=== PATIENT | male | born 1960 | race Caucasian/White ===

== ENCOUNTER 2016-03-02 17:57 | Emergency (ER) | payer MEDICAID ==
[~2016-03-02] VITALS: Ht 182.9 cm; Wt 76.0 kg
[2016-03-02 18:06] VITALS: BP 178/78; PULSE 94; RESP 14; TEMP 98.5; O2SAT 97
[2016-03-02] MEDS ORDERED: ASPI325T PO (20:16)
[2016-03-02] MEDS ORDERED: [UNRECOGNIZED DRUG - REMARK] (20:16)
[2016-03-02] MEDS ORDERED: SODIUM CHLORIDE 0.9% FLUSH 5 ML FLUSH IVF PRN (20:30)
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
[2016-03-02 21:12] LABS: AUTOMATED NEUTROPHIL # 3.1 TH/MM3 (1.8-7.7); BASOPHIL # 0.1 TH/MM3 (0-0.2); BASOPHIL % 0.8 % (0.0-2.0); EOSINOPHIL # 0.7 TH/MM3 (0-0.4); EOSINOPHIL % 9.6 % (0.0-4.0); HEMATOCRIT 35.5 % (39.0-51.0); HEMO FLAGS DIFF FINAL; LYMPH % 36.4 % (9.0-44.0); LYMPHOCYTE # 2.7 TH/MM3 (1.0-4.8); MEAN CELL VOLUME 89.4 FL (80.0-100.0); MEAN CORPUSCULAR HGB CONC 33.5 % (32.0-36.0); NEUT % 42.2 % (16.0-70.0); PLATELET COUNT 266 TH/MM3 (150-450); RED BLOOD COUNT 3.97 MIL/MM3 (4.50-5.90); RED CELL DISTRIBUTION WIDTH 18.4 % (11.6-17.2); WHITE BLOOD COUNT 7.5 TH/MM3 (4.0-11.0)
[2016-03-02 21:14] VITALS: BP 109/55; O2SAT 98
[2016-03-02 22:02] LABS: BICARBONATE 25.3 MEQ/L (21.0-32.0); POTASSIUM 3.8 MEQ/L (3.5-5.1)
--- NOTE | 2016-03-02 22:46 | PD ---
Physical Exam Narrative General: The patient is a well-developed well-nourished male in no acute distress Head and Neck exam: Head is normocephalic, evidence of trauma to the posterior aspect of the head, with superficial abrasion noted. No step-off or crepitus. Eyes: EOMI, pupils are equal round and reactive to light. Neck: No spinous process tenderness to palpation. No step-off or crepitus, no erythema or ecchymosis. No nuchal rigidity. Cardiovascular: Regular rate and rhythm without murmurs, gallops, or rubs. Lungs: Clear to auscultation bilaterally. No wheezes, rhonchi, or rales. Abdomen: Soft, without tenderness to palpation in all 4 quadrants of the abdomen. No guarding, rebound, or rigidity. Normal bowel sounds are audible. Extremities: No clubbing, cyanosis, or edema. 2+ pulses in all 4 extremities. Neurologic examination: The patient is oriented to person, place, time, and situation. The patient has strength that is 5 over 5 in bilateral upper extremities. Patient has diminished strength in his lower extremities related to his prior history. The patient appears to be at his baseline of mentation and has his baseline neurologic examination, compared to prior exams. Data Data Last Documented VS Vital Signs Date Time Temp Pulse Resp B/P Pulse Ox O2 Delivery O2 Flow Rate FiO2 03/02/16 21:14 109/55 03/02/16 21:14 98 Room Air 03/02/16 18:06 98.5 94 14 Orders Complete Blood Count With Diff (03/02/16 20:26) Basic Metabolic Panel (Bmp) (03/02/16 20:26) Ecg Monitoring (03/02/16 20:26) Iv Access Insert/Monitor (03/02/16 20:26) Oximetry (03/02/16 20:26) Sodium Chloride 0.9% Flush (Ns Flush) (03/02/16 20:30) Ct Brain W/O Iv Contrast(Rout) (03/02/16 ) Ct Cerv Spine W/O Contrast (03/02/16 ) Labs Laboratory Tests Test 03/02/16 20:45 White Blood Count 7.5 TH/MM3 Red Blood Count 3.97 MIL/MM3 Hemoglobin 11.9 GM/DL Hematocrit 35.5 % Mean Corpuscular Volume 89.4 FL Mean Corpuscular Hemoglobin 30.0 PG Mean Corpuscular Hemoglobin 33.5 % Concent Red Cell Distribution Width 18.4 % Platelet Count 266 TH/MM3 Mean Platelet Volume 7.6 FL Neutrophils (%) (Auto) 42.2 % Lymphocytes (%) (Auto) 36.4 % Monocytes (%) (Auto) 11.0 % Eosinophils (%) (Auto) 9.6 % Basophils (%) (Auto) 0.8 % Neutrophils # (Auto) 3.1 TH/MM3 Lymphocytes # (Auto) 2.7 TH/MM3 Monocytes # (Auto) 0.8 TH/MM3 Eosinophils # (Auto) 0.7 TH/MM3 Basophils # (Auto) 0.1 TH/MM3 CBC Comment DIFF FINAL Differential Comment Sodium Level 136 MEQ/L Potassium Level 3.8 MEQ/L Chloride Level 102 MEQ/L Carbon Dioxide Level 25.3 MEQ/L Anion Gap 9 MEQ/L Blood Urea Nitrogen 9 MG/DL Creatinine 0.79 MG/DL Estimat Glomerular Filtration 101 ML/MIN Rate Random Glucose 141 MG/DL Calcium Level 7.5 MG/DL [facility] Medical Record Reviewed: Yes Supervised Visit with STANTON: Yes Interpretation(s) Last Impressions Head CT 03/02/16 0000 Signed Impressions: Service Date/Time: Wednesday, March 02, 2016 23:39 - CONCLUSION: Stable brain appearance. No acute findings. Caleb Paige MD Cervical Spine CT 03/02/16 0000 Signed Impressions: Service Date/Time: Wednesday, March 02, 2016 23:39 - CONCLUSION: No acute bony injury. Severe degenerative changes and disc disease similar to prior. Caleb Paige MD Narrative Course I, Dr. Early, have reviewed the advance practice practitioner's documentation and am in agreement, met with the patient face to face, made the diagnosis, and the medical decision making was done by me. The patient was initially seen by Daniel, the physician clinical assistant professor. Please see his complete history and physical. *My assessment and Findings: The patient is a 55-year-old male who presents to [facility] emergency Department with a history of reportedly having a seizure earlier today causing him to fall out of his wheelchair. The patient struck the side of his head. The patient arrives this facility in no acute distress, intoxicated with alcohol. The patient reports that he does drink alcohol on a daily basis. He denies being compliant with any type of seizure medication regimen. The patient's examination was remarkable for an abrasion on his head. Laboratory studies and a CT scan of the head and neck were ordered. The patient's laboratory studies revealed a white count of 7.5, hemoglobin 11.9, platelets 266 with 11 monocytes, CMP was remarkable for a glucose of 141, calcium 7.5. Radiologic studies were remarkable for a CT scan of the brain that shows no acute abnormality. CT scan of the C-spine shows degenerative changes, no other acute abnormality. The patient was observed in the emergency department for improvement in his mentation and ability to get around in his wheelchair without assistance. Once the patient is more awake and alert the patient will be discharged home. The patient is resting comfortably and feels better, is alert and in no distress. The patients results and examination findings were discussed with the patient. The repeat examination is unremarkable and benign. The history, exam, diagnostic testing, and current condition do not suggest any significant pathology to warrant further testing, continued ED treatment, admission, or surgical evaluation at this point. The vital signs have been stable. The patient does not have uncontrollable pain, intractable vomiting, or other significant symptoms. The patient's condition is stable and appropriate for discharge. The patient will pursue further outpatient evaluation with a primary care physician or other designated or consulting physician as indicated in the discharge instructions. The patient expressed understanding and was agreeable with this plan. Diagnosis Primary Impression: Alcohol intoxication Qualified Code: F10.120 - Alcohol intoxication, uncomplicated Additional Impression: Closed head injury Qualified Code: S09.90XA - Closed head injury, initial encounter Referrals: Primary Care Physician [facility] Patient Instructions: General Instructions, Head Injury (ED), Abuse of Alcohol (ED) Additional Instruction: Follow-up with your primary care physician and/or Siobhan Leal for evaluation and possible detox. Cut back on drinking. Return to the emergency department if symptoms get worse. Disposition: 01 DISCHARGE HOME Condition: Stable Yeni Early MD Mar 02, 2016 22:46 evaluation and possible detox. Cut back on drinking. Return to the emergency department if symptoms get worse. Disposition: 01 DISCHARGE HOME Condition: Yeni Bonilla MD Mar 02, 2016 22:46
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
[2016-03-03 05:52] VITALS: TEMP 98.9
[2016-06-17] MEDS ORDERED: LEVE500 PO (16:59)
== END 2016-03-03 06:53 | disposition home or self-care (01) ==
LOC: NEPE 17:57 → NEPA 03-03 06:53
DX: S09.90XA Unspecified injury of head, initial encounter (principal); R56.9 Unspecified convulsions; F10.120 Alcohol abuse with intoxication, uncomplicated; S00.01XA Abrasion of scalp, initial encounter; E11.9 Type 2 diabetes mellitus without complications; I10 Essential (primary) hypertension; G20 Parkinson's disease; Z86.73 Personal history of transient ischemic attack (TIA), and cerebral infarction without residual deficits; Z72.0 Tobacco use; W05.0XXA Fall from non-moving wheelchair, initial encounter
CPT/HCPCS: 70450; 72125; 80048; 85025

== ENCOUNTER 2016-03-10 14:43 | Emergency (ER) | payer MEDICAID ==
[~2016-03-10] VITALS: Ht 180.3 cm; Wt 73.0 kg
[~2016-03-10 14:43] MED LIST: ASPI325T PO; [UNRECOGNIZED DRUG - REMARK]
[2016-03-10] MEDS ORDERED: SODIUM CHLOR 0.9% 1000 ML INJ 1,000 ML IV SCH (14:56)
[2016-03-10 14:58] VITALS: BP 104/68; PULSE 88; RESP 18; TEMP 97.9; O2SAT 96
[2016-03-10 15:00] VITALS: BP 104/68; PULSE 88; RESP 16; TEMP 97.9; O2SAT 96
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
[2016-03-10] MEDS ORDERED: LORazepam 2 MG/ML VIAL IV PUSH ONE (15:30)
--- NOTE | 2016-03-10 15:36 | RADRPT ---
EXAM DATE/TIME: 03/10/2016 15:16 [facility] COMPARISON: CT BRAIN W/O CONTRAST, March 02, 2016, 23:39. INDICATIONS : Generalized weakness. RADIATION DOSE: 56.35 CTDIvol (mGy) MEDICAL HISTORY : Cerebrovascular disease. Seizures. Hypertension. SURGICAL HISTORY : None. ENCOUNTER: Initial ACUITY: 1 day PAIN SCALE: 0/10 LOCATION: cranial TECHNIQUE: Multiple contiguous axial images were obtained of the head. Using automated exposure control and adj ustment of the mA and/or kV according to patient size, radiation dose was kept as low as reasonably a chievable to obtain optimal diagnostic quality images. FINDINGS: Area of remote stroke right middle cerebral artery involving the temporal parietal region is apprecia robbin with encephalomalacia. There is no acute hemorrhage, mass, or extracerebral defect and no acute i ntracranial hemorrhage. Midline structures and major anatomic landmarks remain correctly situated. CONCLUSION: Stable CT brain scan with no acute findings. 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 This report was verified electronically.
--- NOTE | 2016-03-10 15:56 | RADRPT ---
EXAM DATE/TIME: 03/10/2016 15:19 [facility] COMPARISON: CHEST SINGLE AP, November 23, 2015, 22:09. INDICATIONS : Short of breath. MEDICAL HISTORY : Seizures. Parkinsons. Hypertension.CVA SURGICAL HISTORY : None. ENCOUNTER: Initial ACUITY: 1 day PAIN SCORE: 3/10 LOCATION: Bilateral chest FINDINGS: A single view of the chest demonstrates the lungs to be symmetrically aerated without evidence of mas s, infiltrate or effusion. The cardiomediastinal contours are unremarkable. Osseous structures are intact with hypertrophic spurring of the right mid and lower thoracic spine. CONCLUSION: No acute disease. No significant change has occurred. Edilson Orantes MD on March 10, 2016 at 15:54 Board Certified Radiologist. This report was verified electronically.
[2016-03-10 16:09] LABS: AUTOMATED NEUTROPHIL # 4.6 TH/MM3 (1.8-7.7); BASOPHIL # 0.1 TH/MM3 (0-0.2); BASOPHIL % 1.2 % (0.0-2.0); EOSINOPHIL # 0.6 TH/MM3 (0-0.4); EOSINOPHIL % 7.1 % (0.0-4.0); HEMATOCRIT 38.5 % (39.0-51.0); HEMO FLAGS DIFF FINAL; LYMPH % 31.6 % (9.0-44.0); LYMPHOCYTE # 2.8 TH/MM3 (1.0-4.8); MEAN CELL VOLUME 90.6 FL (80.0-100.0); MEAN CORPUSCULAR HEMOGLOBIN 30.1 PG (27.0-34.0); MEAN CORPUSCULAR HGB CONC 33.2 % (32.0-36.0); MONO % 7.6 % (0.0-8.0); NEUT % 52.5 % (16.0-70.0); PLATELET COUNT 286 TH/MM3 (150-450); RED BLOOD COUNT 4.25 MIL/MM3 (4.50-5.90); RED CELL DISTRIBUTION WIDTH 18.9 % (11.6-17.2); WHITE BLOOD COUNT 8.8 TH/MM3 (4.0-11.0)
[2016-03-10 16:18] LABS: APTT (PATIENT) 31.5 SEC (24.3-30.1); PROTHROMBIN TIME - PATIENT 10.8 SEC (9.8-11.6)
[2016-03-10 16:30] LABS: ALT (GPT) 24 U/L (12-78); ANION GAP 14 MEQ/L (5-15); AST (GOT) 36 U/L (15-37); BICARBONATE 20.6 MEQ/L (21.0-32.0); BLOOD UREA NITROGEN 10 MG/DL (7-18); CHLORIDE 98 MEQ/L (98-107); GLOMERULAR FILTRATION RATE 79 ML/MIN (>89); MAGNESIUM 2.1 MG/DL (1.5-2.5); POTASSIUM 4.1 MEQ/L (3.5-5.1); SODIUM (NA) 133 MEQ/L (136-145)
[2016-03-10 16:40] LABS: ALKALINE PHOSPHATASE 73 U/L (45-117); TOTAL BILIRUBIN ADULT 0.2 MG/DL (0.2-1.0)
[2016-03-10] MEDS ORDERED: LEVE500 PO (17:09)
[2016-03-10] MEDS ORDERED: levETIRAcetam 1000 MG INJ 100 ML IV ONE (19:00)
--- NOTE | 2016-03-11 16:16 | EKG ---
Date Performed: 03/10/2016 Time Performed: 15:33:16 PTAGE: 55 years EKG: Sinus rhythm Compared to prior tracing no significant change NORMAL ECG PREVIOUS TRACING 11/23/2015 @2256 DOCTOR: Jayro Perdomo Interpretating Date/Time 03/11/2016 16:16:30
[2016-06-17] MEDS ORDERED: LEVE500 PO (16:59)
== END 2016-03-11 05:12 | disposition home or self-care (01) ==
LOC: NEDAMB 14:43
DX: F10.129 Alcohol abuse with intoxication, unspecified (principal); I10 Essential (primary) hypertension; G20 Parkinson's disease; Z72.0 Tobacco use; Z86.73 Personal history of transient ischemic attack (TIA), and cerebral infarction without residual deficits; Z88.0 Allergy status to penicillin
CPT/HCPCS: 70450; 71010; 80053; 80184; 80320; 83605; 83735; 84443; 84484; 85025; 85610; 85730; 93005; 96361; 96374; 99285; J1953; J7030

== ENCOUNTER 2016-04-06 10:00 | Emergency (ER) | payer MEDICAID ==
[~2016-04-06] VITALS: Ht 180.3 cm; Wt 82.0 kg
[~2016-04-06 10:00] MED LIST changes: +LEVE500 PO
[2016-04-06 10:04] VITALS: BP 121/81; PULSE 86; RESP 17; TEMP 98.4; O2SAT 98
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
[2016-04-06] MEDS ORDERED: levETIRAcetam 500 MG TAB PO ONE (10:30)
[2016-04-06] MEDS ORDERED: THIAMINE INJ 100 MG in SODIUM CHLORIDE 0.9% INJ 100 ML IV ONE (10:30)
[2016-04-06 10:42] LABS: AUTOMATED NEUTROPHIL # 3.4 TH/MM3 (1.8-7.7); BASOPHIL # 0.2 TH/MM3 (0-0.2); EOSINOPHIL # 1.4 TH/MM3 (0-0.4); EOSINOPHIL % 17.1 % (0.0-4.0); HEMATOCRIT 40.7 % (39.0-51.0); HEMO FLAGS DIFF FINAL; LYMPH % 28.7 % (9.0-44.0); LYMPHOCYTE # 2.3 TH/MM3 (1.0-4.8); MEAN CORPUSCULAR HEMOGLOBIN 30.4 PG (27.0-34.0); MEAN CORPUSCULAR HGB CONC 33.8 % (32.0-36.0); MONO % 10.8 % (0.0-8.0); NEUT % 41.4 % (16.0-70.0); PLATELET COUNT 302 TH/MM3 (150-450); RED BLOOD COUNT 4.53 MIL/MM3 (4.50-5.90); RED CELL DISTRIBUTION WIDTH 18.6 % (11.6-17.2); WHITE BLOOD COUNT 8.2 TH/MM3 (4.0-11.0)
[2016-04-06 10:49] LABS: BICARBONATE 22.5 MEQ/L (21.0-32.0); MAGNESIUM 2.3 MG/DL (1.5-2.5)
--- NOTE | 2016-04-06 10:57 | RADRPT ---
EXAM DATE/TIME: 04/06/2016 10:40 [facility] COMPARISON: CT BRAIN W/O CONTRAST, March 10, 2016, 15:16. INDICATIONS : Trauma. RADIATION DOSE: 56.35 CTDI vol (mGy) MEDICAL HISTORY : Cardiovascular disease. Parkinsons. Diabetes mellitus type 2.Hypertension. SURGICAL HISTORY : None. ENCOUNTER: Initial ACUITY: 1 day PAIN SCALE: 0/10 LOCATION: cranial TECHNIQUE: Multiple contiguous axial images were obtained of the head. Using automated exposure control and adj ustment of the mA and/or kV according to patient size, radiation dose was kept as low as reasonably a chievable to obtain optimal diagnostic quality images. FINDINGS: CEREBRUM: Old right temporal lobe infarct. The ventricles are normal for age. No evidence of midline shift, ma ss lesion, hemorrhage or acute infarction. No extra-axial fluid collections are seen. POSTERIOR FOSSA: The cerebellum and brainstem are intact. The 4th ventricle is midline. The cerebellopontine angle i s unremarkable. EXTRACRANIAL: The visualized portion of the orbits is intact. SKULL: The calvaria is intact. No evidence of skull fracture. Bilateral maxillary sinus disease. CONCLUSION: Stable CT findings. No acute intracranial abnormality. Javad Davey MD on April 06, 2016 at 10:51 Board Certified Radiologist. This report was verified electronically.
[2016-04-06] MEDS ORDERED: LEVE500 PO (13:57)
[2016-06-17] MEDS ORDERED: LEVE500 PO (16:59)
== END 2016-04-06 21:49 | disposition home or self-care (01) ==
LOC: NEPE 10:00
DX: F10.120 Alcohol abuse with intoxication, uncomplicated (principal); I10 Essential (primary) hypertension; G20 Parkinson's disease; E11.9 Type 2 diabetes mellitus without complications; Z72.0 Tobacco use; Z86.73 Personal history of transient ischemic attack (TIA), and cerebral infarction without residual deficits
CPT/HCPCS: 70450; 80048; 80320; 83735; 85025; 99284; J3411

== ENCOUNTER 2016-04-15 15:54 | Emergency (ER) | payer MEDICAID ==
[~2016-04-15] VITALS: Ht 180.3 cm; Wt 82.0 kg
[2016-04-15 16:50] VITALS: BP 103/63; PULSE 83; RESP 20; TEMP 97.8; O2SAT 97
[2016-06-17] MEDS ORDERED: LEVE500 PO (16:59)
== END 2016-04-15 21:38 | disposition left against medical advice (07) ==
LOC: NEDAMB 15:54
DX: Z53.21 Procedure and treatment not carried out due to patient leaving prior to being seen by health care provider (principal)
CPT/HCPCS: 99281

== ENCOUNTER 2016-05-07 03:22 | Emergency (ER) | payer MEDICAID ==
[~2016-05-07] VITALS: Ht 167.6 cm; Wt 85.0 kg
[2016-05-07 03:31] VITALS: BP 134/85; PULSE 95; RESP 16; TEMP 97.8; O2SAT 97
[2016-05-07] MEDS ORDERED: SODIUM CHLOR 0.9% 1000 ML INJ 1,000 ML IV SCH (05:11)
[2016-05-07] MEDS ORDERED: THIAMINE INJ 100 MG in SODIUM CHLORIDE 0.9% INJ 100 ML IV ONE (05:15)
[2016-05-07] MEDS ORDERED: SODIUM CHLORIDE 0.9% FLUSH 10 ML FLUSH IVF PRN (05:15)
[2016-05-07 05:17] VITALS: O2SAT 99
--- NOTE | 2016-05-07 05:35 | PD ---
HPI Chief Complaint: Alcohol/Drug Intoxication Time Seen by Provider: 05:11 Travel History International Travel<30 days: No Contact w/Intl Traveler<30days: No Traveled to known affect area: No History of Present Illness HPI The patient is a 55-year-old male alcoholic that was picked up by [place] police department for public intoxication. Because he could not walk he was brought here because the usp refused to except him. He has no other problems except he wants a sandwich and something to drink. The patient normally cannot walk and has a wheelchair. The patient is not sure where his wheelchair is. 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) Past Surgical History Other Surgery: Yes (RIGHT SHOULDER) Social History Alcohol Use: Yes (DAILY) Tobacco Use: Yes Substance Use: No Allergies-Medications (Allergen,Severity, Reaction): Coded Allergies: Penicillin (Verified Allergy, Unknown, 05/07/16) *MDRO Multi-Drug Resistant Organism (Verified Adverse Reaction, Unknown, ) 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 His vital signs show a pulse of 95 but otherwise are normal. SKIN: Warm and dry. HEAD: Atraumatic. Normocephalic. EYES: Pupils equal and round. No scleral icterus. No injection or drainage. ENT: No nasal bleeding or discharge. Mucous membranes pink and moist. NECK: Trachea midline. No JVD. CARDIOVASCULAR: Regular rate and rhythm. No murmur appreciated. RESPIRATORY: No accessory muscle use. Clear to auscultation. Breath sounds equal bilaterally. GASTROINTESTINAL: Abdomen soft, non-tender, nondistended. Hepatic and splenic margins not palpable. MUSCULOSKELETAL: No obvious deformities. No clubbing. No cyanosis. No edema. NEUROLOGICAL: Awake and alert. No obvious cranial nerve deficits. Motor grossly within normal limits. Normal speech. PSYCHIATRIC: Appropriate mood and affect; insight and judgment fair because of intoxication. Data Data Last Documented VS Vital Signs Date Time Temp Pulse Resp B/P Pulse Ox O2 Delivery O2 Flow Rate FiO2 05/07/16 05:17 99 Room Air 05/07/16 03:31 97.8 95 16 134/85 Orders Complete Blood Count With Diff (05/07/16 05:11) Comprehensive Metabolic Panel (05/07/16 05:11) Ecg Monitoring (05/07/16 05:11) Iv Access Insert/Monitor (05/07/16 05:11) Oximetry (05/07/16 05:11) Sodium Chloride 0.9% Flush (Ns Flush) (05/07/16 05:15) Sodium Chlor 0.9% 1000 Ml Inj (Ns 1000 M (05/07/16 05:11) Thiamine Inj (Thiamine Inj) (05/07/16 05:15) Alcohol (Ethanol) (05/07/16 05:11) Labs Laboratory Tests Test 05/07/16 05:25 White Blood Count 7.4 TH/MM3 Red Blood Count 3.99 MIL/MM3 Hemoglobin 12.8 GM/DL Hematocrit 37.0 % Mean Corpuscular Volume 92.7 FL Mean Corpuscular Hemoglobin 32.0 PG Mean Corpuscular Hemoglobin 34.6 % Concent Red Cell Distribution Width 18.2 % Platelet Count 220 TH/MM3 Mean Platelet Volume 7.9 FL Neutrophils (%) (Auto) 45.5 % Lymphocytes (%) (Auto) 31.1 % Monocytes (%) (Auto) 14.4 % Eosinophils (%) (Auto) 8.2 % Basophils (%) (Auto) 0.8 % Neutrophils # (Auto) 3.4 TH/MM3 Lymphocytes # (Auto) 2.3 TH/MM3 Monocytes # (Auto) 1.1 TH/MM3 Eosinophils # (Auto) 0.6 TH/MM3 Basophils # (Auto) 0.1 TH/MM3 CBC Comment DIFF FINAL Differential Comment Sodium Level 140 MEQ/L Potassium Level 3.7 MEQ/L Chloride Level 107 MEQ/L Carbon Dioxide Level 23.0 MEQ/L Anion Gap 10 MEQ/L Blood Urea Nitrogen 9 MG/DL Creatinine 0.71 MG/DL Estimat Glomerular Filtration 115 ML/MIN Rate Random Glucose 87 MG/DL Calcium Level 7.6 MG/DL Total Bilirubin 0.2 MG/DL Aspartate Amino Transf 48 U/L (AST/SGOT) Alanine Aminotransferase 36 U/L (ALT/SGPT) Alkaline Phosphatase 70 U/L Total Protein 6.9 GM/DL Albumin 2.9 GM/DL Ethyl Alcohol Level 278 MG/DL [facility] Medical Decision Making Medical Screen Exam Complete: Yes Emergency Medical Condition: Yes Medical Record Reviewed: Yes Interpretation(s) The CBC shows a hemoglobin of 12.8 and hematocrit of 37 but is otherwise normal. The complete metabolic profile shows a calcium of 7.6, AST of 48 and albumin of 2.9 but is otherwise normal. The alcohol level is 278. Differential Diagnosis Alcohol intoxication, other drug intoxicationunlikely, refusal to walk to avoid usp, patient unable to walk normally Narrative Course The patient is unable to walk. He has a wheelchair and it is at prisoner transport. If the police will bring him his wheelchair we will let the patient go. The patient has been cooperative here. Diagnosis Primary Impression: Alcohol intoxication Additional Impression: Wheelchair confinement status Additional Instructions: Please discontinue alcohol. Follow-up with Chance Leal if you wish to get off of alcohol. Med/Other Pt SpecificInfo: No Change to Meds Disposition: 01 DISCHARGE HOME Condition: Stable Freddy Thorne MD May 07, 2016 05:35
[2016-05-07 05:44] LABS: AUTOMATED NEUTROPHIL # 3.4 TH/MM3 (1.8-7.7); BASOPHIL # 0.1 TH/MM3 (0-0.2); BASOPHIL % 0.8 % (0.0-2.0); EOSINOPHIL # 0.6 TH/MM3 (0-0.4); EOSINOPHIL % 8.2 % (0.0-4.0); HEMO FLAGS DIFF FINAL; LYMPH % 31.1 % (9.0-44.0); LYMPHOCYTE # 2.3 TH/MM3 (1.0-4.8); MEAN CELL VOLUME 92.7 FL (80.0-100.0); MEAN CORPUSCULAR HGB CONC 34.6 % (32.0-36.0); MONO % 14.4 % (0.0-8.0); NEUT % 45.5 % (16.0-70.0); PLATELET COUNT 220 TH/MM3 (150-450); RED BLOOD COUNT 3.99 MIL/MM3 (4.50-5.90); RED CELL DISTRIBUTION WIDTH 18.2 % (11.6-17.2); WHITE BLOOD COUNT 7.4 TH/MM3 (4.0-11.0)
[2016-05-07 05:57] LABS: ANION GAP 10 MEQ/L (5-15)
[2016-05-07 06:01] LABS: ALKALINE PHOSPHATASE 70 U/L (45-117); ALT (GPT) 36 U/L (12-78); AST (GOT) 48 U/L (15-37); BLOOD UREA NITROGEN 9 MG/DL (7-18); CHLORIDE 107 MEQ/L (98-107); GLOMERULAR FILTRATION RATE 115 ML/MIN (>89); POTASSIUM 3.7 MEQ/L (3.5-5.1); SODIUM (NA) 140 MEQ/L (136-145); TOTAL BILIRUBIN ADULT 0.2 MG/DL (0.2-1.0)
[2016-05-07] MEDS ORDERED: LEVE500 PO (07:27)
[2016-06-17] MEDS ORDERED: LEVE500 PO (16:59)
== END 2016-05-07 08:18 | disposition home or self-care (01) ==
LOC: NEPC 03:22
DX: F10.129 Alcohol abuse with intoxication, unspecified (principal); E11.9 Type 2 diabetes mellitus without complications; I10 Essential (primary) hypertension; G20 Parkinson's disease; Z99.3 Dependence on wheelchair; Z72.0 Tobacco use; Z79.82 Long term (current) use of aspirin; Z87.39 Personal history of other diseases of the musculoskeletal system and connective tissue; Z86.59 Personal history of other mental and behavioral disorders; Z86.79 Personal history of other diseases of the circulatory system; Z86.69 Personal history of other diseases of the nervous system and sense organs; Z87.2 Personal history of diseases of the skin and subcutaneous tissue
CPT/HCPCS: 80053; 80307; 85025; 96365; 99284; J3411; J7030

== ENCOUNTER 2016-06-21 12:51 | Emergency (ER) | payer MEDICAID ==
[~2016-06-21] VITALS: Ht 182.9 cm; Wt 69.0 kg
[2016-06-21 13:04] VITALS: BP 110/74; PULSE 88; RESP 16; TEMP 98.5; O2SAT 97
[2016-06-21 13:07] VITALS: BP 110/74; PULSE 84; RESP 16; O2SAT 99
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
--- NOTE | 2016-06-21 13:37 | RADRPT ---
EXAM DATE/TIME: 06/21/2016 13:19 [facility] COMPARISON: CT BRAIN W/O CONTRAST, April 06, 2016, 10:40. INDICATIONS : Fell back hit back of head of his head. RADIATION DOSE: 56.37 CTDIvol (mGy) MEDICAL HISTORY : Cerebrovascular disease. Seizures. Cardiovascular diseaseHTN,DIABETES SURGICAL HISTORY : None. ENCOUNTER: Initial ACUITY: 1 day PAIN SCALE: 10/10 LOCATION: cranial TECHNIQUE: Multiple contiguous axial images were obtained of the head. Using automated exposure control and adj ustment of the mA and/or kV according to patient size, radiation dose was kept as low as reasonably a chievable to obtain optimal diagnostic quality images. FINDINGS: CEREBRUM: Old right middle cerebral artery distribution infarct. The ventricles are normal for age. No evidenc e of midline shift, mass lesion, hemorrhage or acute infarction. No extra-axial fluid collections ar e seen. POSTERIOR FOSSA: The cerebellum and brainstem are intact. The 4th ventricle is midline. The cerebellopontine angle i s unremarkable. EXTRACRANIAL: The visualized portion of the orbits is intact. Fluid in both maxillary sinuses. SKULL: The calvaria is intact. No evidence of skull fracture. CONCLUSION: Stable CT findings. Remote right middle cerebral artery distribution infarct. Bilateral maxillary sin usitis. Javad Davey MD on June 21, 2016 at 13:34 Board Certified Radiologist. This report was verified electronically.
[2016-06-21] MEDS ORDERED: ACET325T PO (15:22)
[2016-06-21] MEDS ORDERED: LEVE500 PO (15:25)
[2016-06-21] MEDS ORDERED: ACETAMINOPHEN 325 MG TAB PO ONE (15:30)
== END 2016-06-21 16:30 | disposition home or self-care (01) ==
LOC: NEPC 12:51
DX: S09.90XA Unspecified injury of head, initial encounter (principal); F10.20 Alcohol dependence, uncomplicated; G20 Parkinson's disease; I10 Essential (primary) hypertension; E11.9 Type 2 diabetes mellitus without complications; F41.8 Other specified anxiety disorders; Z59.0 Homelessness; Z79.82 Long term (current) use of aspirin; Z72.0 Tobacco use; V00.811A Fall from moving wheelchair (powered), initial encounter; V78.4XXA Person boarding or alighting from bus injured in noncollision transport accident, initial encounter; Y93.89 Activity, other specified; Y92.811 Bus as the place of occurrence of the external cause; Y99.8 Other external cause status
CPT/HCPCS: 70450

== ENCOUNTER 2016-08-26 22:35 | Emergency (ER) | payer MEDICAID, OTHER ==
[~2016-08-26] VITALS: Ht 177.8 cm; Wt 90.0 kg
[~2016-08-26 22:35] MED LIST changes: +ACET325T PO; -[UNRECOGNIZED DRUG - REMARK]
[2016-08-26 22:54] VITALS: BP 144/82; PULSE 89; RESP 18; TEMP 98.6; O2SAT 96
[2016-08-26] MEDS ORDERED: THIAMINE INJ 100 MG in SODIUM CHLORIDE 0.9% INJ 100 ML IV ONE (23:00)
[2016-08-26] MEDS ORDERED: SODIUM CHLOR 0.9% 1000 ML INJ 1,000 ML IV ONE ×2 (23:00)
--- NOTE | 2016-08-26 23:04 | PD ---
HPI Chief Complaint: Medical Clearance Time Seen by Provider: 23:01 Travel History International Travel<30 days: No Contact w/Intl Traveler<30days: No Traveled to known affect area: No History of Present Illness HPI 56-year-old white male presents to emergency department by EMS in police custody for medical clearance to go to alf. The patient had been given a ticket for open container but a fight ensued and the patient was arrested. The patient is heavily intoxicated. He was brought to the ER for medical clearance. The patient has no medical complaints at this time. He is extremely intoxicated and is incoherent. No medical history is obtainable from the patient at this time. 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) Past Surgical History Other Surgery: Yes (RIGHT SHOULDER) Social History Alcohol Use: Yes (DAILY) Tobacco Use: Yes (2 CIGS/DAY) Substance Use: No Allergies-Medications (Allergen,Severity, Reaction): Coded Allergies: Penicillin (Verified Allergy, Unknown, 06/21/16) *MDRO Multi-Drug Resistant Organism (Verified Adverse Reaction, Unknown, ) pt reports 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 Smells of EtOH and appears heavily intoxicated SKIN: Warm and dry. No wound infections. HEAD: Normocephalic and atraumatic. EYES: No scleral icterus. No injection or drainage. ENT: No nasal drainage noted. Mucous membranes pink. Airway patent. NECK: Supple, trachea midline. Moves head freely without obvious discomfort. CARDIOVASCULAR: Regular rate and rhythm without murmurs, gallops, or rubs. RESPIRATORY: Breath sounds equal bilaterally. No accessory muscle use. GASTROINTESTINAL: Abdomen soft, non-tender, nondistended. EXTREMITIES: No cyanosis or edema. BACK: Nontender without obvious deformity. No CVA tenderness. NEURO: Patient is alert and oriented to person. no sensorimotor deficits. Positive ataxia secondary to alcohol. No lateralizing signs. No evidence of trauma. Extremely slurred speech. PSYCH: No delusions. No auditory or visual hallucinations. Data Data Last Documented VS Vital Signs Date Time Temp Pulse Resp B/P Pulse Ox O2 Delivery O2 Flow Rate FiO2 08/26/16 22:57 89 20 08/26/16 22:54 98.6 144/82 96 Orders Iv Access Insert/Monitor (08/26/16 22:57) Sodium Chlor 0.9% 1000 Ml Inj (Ns 1000 M (08/26/16 23:00) Thiamine Inj (Thiamine Inj) (08/26/16 23:00) Sodium Chlor 0.9% 1000 Ml Inj (Ns 1000 M (08/26/16 23:00) Comprehensive Metabolic Panel (08/26/16 22:57) Alcohol (Ethanol) (08/26/16 22:57) Haloperidol Inj (Haldol Inj) (08/26/16 23:30) MDM Medical Decision Making Medical Screen Exam Complete: Yes Emergency Medical Condition: Yes Medical Record Reviewed: Yes Differential Diagnosis Differential diagnoses: Alcohol intoxication, substance abuse, electrolyte abnormality, malingering Narrative Course IV access is obtained. Patient's given 2 L of normal saline, 100 mg of thiamine IV. PD now has opted to give him a ticket for open container and a ticket to appear. The patient will be allowed to sleep it off and will be discharged in the morning. He is given additional 2 mg of Haldol IV. Patient is on a EKG and sat monitor. Diagnosis Primary Impression: Alcohol intoxication Qualified Code: F10.920 - Alcohol intoxication, uncomplicated Patient Instructions: General Instructions Additional Instructions: Rest. Increase fluids. Avoid alcohol. Avoid illegal substances. Follow-up with [facility] for detox. Do not operate a car or any heavy machinery under the influence of alcohol or drugs. Follow-up with a medical doctor this week. Return to the ER for emergencies Med/Other Pt SpecificInfo: No Meds Exist/No RX given Disposition: 01 DISCHARGE HOME Condition: Dony Guaman Aug 26, 2016 23:04
[2016-08-26 23:30] LABS: ANION GAP 10 MEQ/L (5-15); AST (GOT) 32 U/L (15-37); BICARBONATE 23.1 MEQ/L (21.0-32.0); BLOOD UREA NITROGEN 5 MG/DL (7-18); CHLORIDE 98 MEQ/L (98-107); GLOMERULAR FILTRATION RATE 111 ML/MIN (>89); POTASSIUM 3.6 MEQ/L (3.5-5.1); SODIUM (NA) 131 MEQ/L (136-145)
[2016-08-26] MEDS ORDERED: HALOPERIDOL LACTATE 5 MG/ML AMP IV PUSH ONE (23:30)
[2016-08-26 23:31] LABS: ALT (GPT) 27 U/L (12-78)
[2016-08-26 23:35] LABS: ALKALINE PHOSPHATASE 74 U/L (45-117); TOTAL BILIRUBIN ADULT 0.3 MG/DL (0.2-1.0)
[2016-08-26 23:36] VITALS: BP 144/82; PULSE 90; RESP 18; O2SAT 95
[2016-08-27] MEDS ORDERED: HALOPERIDOL LACTATE 5 MG/ML AMP IV PUSH ONE
[2016-08-27] MEDS ORDERED: LEVE500 PO (07:25)
--- NOTE | 2016-08-27 07:26 | PD ---
Physical Exam Date Seen by Provider: Aug 27, 2016 Time Seen by Provider: 07:19 Narrative For full history and physical examination please see previous brought is noted. Patient was brought into emergency department for medical clearance. He was evaluated and cleared. He is now requesting a refill of his Keppra. Data Data Last Documented VS Vital Signs Date Time Temp Pulse Resp B/P Pulse Ox O2 Delivery O2 Flow Rate FiO2 08/26/16 23:36 90 18 144/82 95 Room Air 08/26/16 22:54 98.6 Orders Iv Access Insert/Monitor (08/26/16 22:57) Sodium Chlor 0.9% 1000 Ml Inj (Ns 1000 M (08/26/16 23:00) Thiamine Inj (Thiamine Inj) (08/26/16 23:00) Sodium Chlor 0.9% 1000 Ml Inj (Ns 1000 M (08/26/16 23:00) Comprehensive Metabolic Panel (08/26/16 22:57) Alcohol (Ethanol) (08/26/16 22:57) Haloperidol Inj (Haldol Inj) (08/26/16 23:30) Haloperidol Inj (Haldol Inj) (08/27/16 00:00) Labs Laboratory Tests Test 08/26/16 23:07 Sodium Level 131 MEQ/L Potassium Level 3.6 MEQ/L Chloride Level 98 MEQ/L Carbon Dioxide Level 23.1 MEQ/L Anion Gap 10 MEQ/L Blood Urea Nitrogen 5 MG/DL Creatinine 0.73 MG/DL Estimat Glomerular Filtration 111 ML/MIN Rate Random Glucose 95 MG/DL Calcium Level 8.3 MG/DL Total Bilirubin 0.3 MG/DL Aspartate Amino Transf 32 U/L (AST/SGOT) Alanine Aminotransferase 27 U/L (ALT/SGPT) Alkaline Phosphatase 74 U/L Total Protein 7.1 GM/DL Albumin 3.2 GM/DL Ethyl Alcohol Level 280 MG/DL [facility] Medical Record Reviewed: Yes Supervised Visit with [place]: No Narrative Course Patient is a 56-year-old male who is brought into emergency department for medical clearance. Patient was seen and evaluated, medically cleared. He is requesting a refill of his Keppra. Patient will be provided with prescription. Patient is ready for discharge. Diagnosis Primary Impression: Alcohol intoxication Qualified Code: F10.920 - Alcohol intoxication, uncomplicated Referrals: [facility] (Out patient) Patient Instructions: General Instructions Departure Forms: Tests/Procedures Additional Instruction: Rest. Increase fluids. Avoid alcohol. Avoid illegal substances. Follow-up with [facility] for detox. Do not operate a car or any heavy machinery under the influence of alcohol or drugs. Follow-up with a medical doctor this week. Return to the ER for emergencies Med/Other Pt SpecificInfo: Prescription(s) given Scripts Levetiracetam (Keppra)500 Mg [id number] Mg PO BID #60 TAB Ref 0 Prov:Ольга Bangura 08/27/16 Disposition: 01 DISCHARGE HOME Condition: Stable Ольга Bangura Aug 27, 2016 07:26
[2016-08-27 07:54] VITALS: BP 136/80
== END 2016-08-27 07:45 | disposition home or self-care (01) ==
LOC: NEPD 22:35
DX: F10.129 Alcohol abuse with intoxication, unspecified (principal); Z76.0 Encounter for issue of repeat prescription; M13.80 Other specified arthritis, unspecified site; F32.9 Major depressive disorder, single episode, unspecified; E11.9 Type 2 diabetes mellitus without complications; I10 Essential (primary) hypertension; G20 Parkinson's disease; R56.9 Unspecified convulsions; F17.210 Nicotine dependence, cigarettes, uncomplicated
CPT/HCPCS: 80053; 80307; 96365; 96375; 99284; J1630; J3411; J7030

== ENCOUNTER 2016-08-31 23:25 | Emergency (ER) | payer MEDICAID, OTHER ==
[~2016-08-31] VITALS: Ht 175.3 cm; Wt 84.0 kg
--- NOTE | 2016-08-31 23:51 | PD ---
HPI Chief Complaint: ETOH Time Seen by Provider: 23:38 Travel History International Travel<30 days: No Contact w/Intl Traveler<30days: No History of Present Illness HPI Patient is a 56-year-old male who was brought to emergency room by EMS for public alcohol intoxication. Patient was found drinking with a few other and today at a store, reports that patient was wheel chair bound - EMS was called to bring him to the ER under [place]'s Act. As per EMS, police gave patient's wheelchair to his "drinking friends." Patient was brought to the ER without his wheelchair. Patient denies si/hi. 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) Past Surgical History Other Surgery: Yes (RIGHT SHOULDER) Social History Alcohol Use: Yes (DAILY) Tobacco Use: Yes (2 CIGS/DAY) Substance Use: No Allergies-Medications (Allergen,Severity, Reaction): Coded Allergies: Penicillin (Verified Allergy, Unknown, 09/01/16) *MDRO Multi-Drug Resistant Organism (Verified Adverse Reaction, Unknown, ) pt reports 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 MRSA PCR Screen POSITIVE - 09/10/15 Reported Meds & Prescriptions Reported Meds & Active Scripts Active Keppra (Levetiracetam) 500 Mg Tab 500 Mg PO BID 10 Days Reported Aspirin 325 Mg Tab 325 Mg PO DAILY Review of Systems General / Constitutional: No: Fever Eyes: No: Visual changes HENT: No: Headaches Cardiovascular: No: Chest Pain or Discomfort Respiratory: No: Shortness of Breath Gastrointestinal: No: Abdominal Pain Genitourinary: No: Dysuria Musculoskeletal: No: Pain Skin: No Rash Neurologic: No: Weakness Psychiatric: Positive: Substance Abuse, No: Depression Endocrine: No: Polydipsia Hematologic/Lymphatic: No: Easy Bruising Physical Exam Narrative GENERAL: Patient heavily intoxicated SKIN: Focused skin assessment warm/dry. HEAD: Atraumatic. Normocephalic. ENT: No nasal bleeding or discharge. Mucous membranes pink and moist. NECK: Trachea midline. No JVD. CARDIOVASCULAR: Regular rate and rhythm. No murmur appreciated. RESPIRATORY: No accessory muscle use. Clear to auscultation. Breath sounds equal bilaterally. GASTROINTESTINAL: Abdomen soft, non-tender, nondistended. Hepatic and splenic margins not palpable. MUSCULOSKELETAL: No obvious deformities. No clubbing. No cyanosis. No edema. PSYCHIATRIC: Patient intoxicated Data Data Last Documented VS Vital Signs Date Time Temp Pulse Resp B/P Pulse Ox O2 Delivery O2 Flow Rate FiO2 09/01/16 00:18 98.2 81 16 102/59 92 Orders Complete Blood Count With Diff (08/31/16 23:38) Basic Metabolic Panel (Bmp) (08/31/16 23:38) Alcohol (Ethanol) (08/31/16 23:38) Potassium Chloride (Kcl) (09/01/16 01:00) Ceftriaxone Inj (Rocephin Inj) (09/01/16 01:00) Labs Laboratory Tests Test 09/01/16 00:05 White Blood Count 6.5 TH/MM3 Red Blood Count 3.77 MIL/MM3 Hemoglobin 13.1 GM/DL Hematocrit 37.2 % Mean Corpuscular Volume 98.9 FL Mean Corpuscular Hemoglobin 34.9 PG Mean Corpuscular Hemoglobin 35.3 % Concent Red Cell Distribution Width 15.7 % Platelet Count 238 TH/MM3 Mean Platelet Volume 7.6 FL Neutrophils (%) (Auto) 41.3 % Lymphocytes (%) (Auto) 36.5 % Monocytes (%) (Auto) 13.1 % Eosinophils (%) (Auto) 8.6 % Basophils (%) (Auto) 0.5 % Neutrophils # (Auto) 2.7 TH/MM3 Lymphocytes # (Auto) 2.4 TH/MM3 Monocytes # (Auto) 0.9 TH/MM3 Eosinophils # (Auto) 0.6 TH/MM3 Basophils # (Auto) 0.0 TH/MM3 CBC Comment DIFF FINAL Differential Comment Sodium Level 136 MEQ/L Potassium Level 3.2 MEQ/L Chloride Level 103 MEQ/L Carbon Dioxide Level 21.5 MEQ/L Anion Gap 12 MEQ/L Blood Urea Nitrogen 9 MG/DL Creatinine 0.73 MG/DL Estimat Glomerular Filtration 111 ML/MIN Rate Random Glucose 94 MG/DL Calcium Level 7.9 MG/DL Ethyl Alcohol Level 311 MG/DL MDM Medical Decision Making Medical Screen Exam Complete: Yes Emergency Medical Condition: Yes Differential Diagnosis Differential includes alcohol intoxication, electrolyte abnormality Narrative Course 56 year old male who was brought to the ER for evaluation of alcohol intoxication. Patient denies si/hi. Patient with no c/o at this time. Plan to obtain labs and monitor patient. Will discharge once sober Diagnosis Primary Impression: Alcohol intoxication Qualified Code: F10.920 - Alcohol intoxication, uncomplicated Additional Impression: Hypokalemia Patient Instructions: General Instructions Additional Instructions: Please drink responsibly Return to ER as needed Please follow up with your primary care doctor Lori Newsome DO Aug 31, 2016 23:51
[2016-09-01 00:18] VITALS: BP 102/59; PULSE 81; RESP 16; TEMP 98.2; O2SAT 92
[2016-09-01 00:46] LABS: AUTOMATED NEUTROPHIL # 2.7 TH/MM3 (1.8-7.7); BASOPHIL % 0.5 % (0.0-2.0); EOSINOPHIL # 0.6 TH/MM3 (0-0.4); EOSINOPHIL % 8.6 % (0.0-4.0); HEMATOCRIT 37.2 % (39.0-51.0); HEMO FLAGS DIFF FINAL; LYMPH % 36.5 % (9.0-44.0); LYMPHOCYTE # 2.4 TH/MM3 (1.0-4.8); MEAN CELL VOLUME 98.9 FL (80.0-100.0); MEAN CORPUSCULAR HEMOGLOBIN 34.9 PG (27.0-34.0); MEAN CORPUSCULAR HGB CONC 35.3 % (32.0-36.0); MONO % 13.1 % (0.0-8.0); NEUT % 41.3 % (16.0-70.0); PLATELET COUNT 238 TH/MM3 (150-450); RED BLOOD COUNT 3.77 MIL/MM3 (4.50-5.90); RED CELL DISTRIBUTION WIDTH 15.7 % (11.6-17.2); WHITE BLOOD COUNT 6.5 TH/MM3 (4.0-11.0)
[2016-09-01 00:50] LABS: BICARBONATE 21.5 MEQ/L (21.0-32.0); POTASSIUM 3.2 MEQ/L (3.5-5.1)
[2016-09-01] MEDS ORDERED: POTASSIUM CHLORIDE 10 MEQ CONTROLLED RELEASE TAB PO ONE (01:00)
[2016-09-01] MEDS ORDERED: cefTRIAXone INJ 1,000 MG in SODIUM CHLORIDE 0.9% INJ 25 ML IV ONE (01:00)
[2016-09-01 04:00] VITALS: BP 110/68; PULSE 74; RESP 16; O2SAT 93
[2016-09-01 14:42] VITALS: BP 134/68
== END 2016-09-01 14:45 | disposition home or self-care (01) ==
LOC: NEPD 23:25
DX: F10.129 Alcohol abuse with intoxication, unspecified (principal); E87.6 Hypokalemia; G20 Parkinson's disease; I10 Essential (primary) hypertension; E11.9 Type 2 diabetes mellitus without complications; F41.9 Anxiety disorder, unspecified; F32.9 Major depressive disorder, single episode, unspecified; M13.88 Other specified arthritis, other site; Z79.899 Other long term (current) drug therapy
CPT/HCPCS: 80048; 80307; 85025; 99283

== ENCOUNTER 2016-09-16 13:46 | Emergency (ER) | payer MEDICAID, OTHER ==
[~2016-09-16] VITALS: Ht 167.6 cm; Wt 80.0 kg
[~2016-09-16 13:46] MED LIST changes: -ACET325T PO
[2016-09-16 14:08] VITALS: BP 113/82; PULSE 89; RESP 18; TEMP 98.4; O2SAT 97
--- NOTE | 2016-09-16 15:41 | PD ---
HPI Chief Complaint: Medical Clearance Time Seen by Provider: 15:39 Travel History International Travel<30 days: No Contact w/Intl Traveler<30days: No History of Present Illness HPI 56-year-old male presents to the emergency Department under [place] act alcohol intoxication. The patient reports having 3 beers today. Apparently, he was at the side of the road and was not answering questions appropriately. At this time, he is asking for a bus pass. He is alert and oriented to person, place, time. He has no medical complaints at this time. 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) Past Surgical History Other Surgery: Yes (RIGHT SHOULDER) Social History Alcohol Use: Yes (DAILY) Tobacco Use: Yes (2 CIGS/DAY) Substance Use: No Allergies-Medications (Allergen,Severity, Reaction): Coded Allergies: Penicillin (Verified Allergy, Unknown, 09/16/16) *MDRO Multi-Drug Resistant Organism (Verified Adverse Reaction, Unknown, ) pt reports 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 SKIN: Focused skin assessment warm/dry. HEAD: Normocephalic. Atraumatic. EYES: No scleral icterus. No injection or drainage. NECK: Supple, trachea midline. No JVD or lymphadenopathy. CARDIOVASCULAR: Regular rate and rhythm without murmurs, gallops, or rubs. RESPIRATORY: Breath sounds equal bilaterally. No accessory muscle use. Lungs sounds are clear to auscultation. GASTROINTESTINAL: Abdomen soft, non-tender, nondistended. MUSCULOSKELETAL: No cyanosis, or edema. BACK: Nontender without obvious deformity. No CVA tenderness. Data Data Last Documented VS Vital Signs Date Time Temp Pulse Resp B/P Pulse Ox O2 Delivery O2 Flow Rate FiO2 09/16/16 14:08 98.4 89 18 113/82 97 Orders Complete Blood Count With Diff (09/16/16 14:29) Comprehensive Metabolic Panel (09/16/16 14:29) Drug Screen, Random Urine (09/16/16 14:29) Alcohol (Ethanol) (09/16/16 14:29) Labs Laboratory Tests Test 09/16/16 14:00 White Blood Count 9.9 TH/MM3 Red Blood Count 4.34 MIL/MM3 Hemoglobin 14.6 GM/DL Hematocrit 43.7 % Mean Corpuscular Volume 100.7 FL Mean Corpuscular Hemoglobin 33.6 PG Mean Corpuscular Hemoglobin 33.4 % Concent Red Cell Distribution Width 14.8 % Platelet Count 360 TH/MM3 Mean Platelet Volume 7.6 FL Neutrophils (%) (Auto) 47.8 % Lymphocytes (%) (Auto) 33.1 % Monocytes (%) (Auto) 11.5 % Eosinophils (%) (Auto) 6.7 % Basophils (%) (Auto) 0.9 % Neutrophils # (Auto) 4.7 TH/MM3 Lymphocytes # (Auto) 3.3 TH/MM3 Monocytes # (Auto) 1.1 TH/MM3 Eosinophils # (Auto) 0.7 TH/MM3 Basophils # (Auto) 0.1 TH/MM3 CBC Comment DIFF FINAL Differential Comment Sodium Level 139 MEQ/L Potassium Level 3.6 MEQ/L Chloride Level 106 MEQ/L Carbon Dioxide Level 22.6 MEQ/L Anion Gap 10 MEQ/L Blood Urea Nitrogen 11 MG/DL Creatinine 0.84 MG/DL Estimat Glomerular Filtration 94 ML/MIN Rate Random Glucose 82 MG/DL Calcium Level 8.4 MG/DL Total Bilirubin 0.3 MG/DL Aspartate Amino Transf 18 U/L (AST/SGOT) Alanine Aminotransferase 21 U/L (ALT/SGPT) Alkaline Phosphatase 66 U/L Total Protein 7.9 GM/DL Albumin 3.5 GM/DL Ethyl Alcohol Level 286 MG/DL [facility] Medical Decision Making Medical Screen Exam Complete: Yes Emergency Medical Condition: Yes Medical Record Reviewed: Yes Differential Diagnosis Alcohol intoxication versus malingering versus medical clearance Narrative Course 56-year-old male presents to the emergency Department under [place]'s act by local police for alcohol intoxication. Patient is well-known to the emergency department for alcohol intoxication. Labs were initiated before I saw the patient. CBC, CMP, alcohol level, urine drug screen are pending. CBC shows no acute abnormality. CMP shows no acute abnormality. Alcohol level is 286. UDS is negative. Patient will be allowed to rest in the emergency department until he demonstrates sobriety. Diagnosis Primary Impression: Alcohol intoxication Qualified Code: F10.920 - Alcohol intoxication, uncomplicated Referrals: [facility] Patient Instructions: Alcohol Intoxication (ED), General Instructions Additional Instructions: Pleased drink responsibly. Follow-up with your primary care physician. Return to the emergency department for any acute worsening of symptoms. Med/Other Pt SpecificInfo: No Change to Meds Disposition: 01 DISCHARGE HOME Condition: Stable JoeTianna Sep 16, 2016 15:41
[2016-09-16 15:42] LABS: AUTOMATED NEUTROPHIL # 4.7 TH/MM3 (1.8-7.7); BASOPHIL # 0.1 TH/MM3 (0-0.2); BASOPHIL % 0.9 % (0.0-2.0); EOSINOPHIL # 0.7 TH/MM3 (0-0.4); EOSINOPHIL % 6.7 % (0.0-4.0); HEMATOCRIT 43.7 % (39.0-51.0); HEMO FLAGS DIFF FINAL; LYMPH % 33.1 % (9.0-44.0); LYMPHOCYTE # 3.3 TH/MM3 (1.0-4.8); MEAN CELL VOLUME 100.7 FL (80.0-100.0); MEAN CORPUSCULAR HEMOGLOBIN 33.6 PG (27.0-34.0); MEAN CORPUSCULAR HGB CONC 33.4 % (32.0-36.0); MONO % 11.5 % (0.0-8.0); NEUT % 47.8 % (16.0-70.0); PLATELET COUNT 360 TH/MM3 (150-450); RED BLOOD COUNT 4.34 MIL/MM3 (4.50-5.90); RED CELL DISTRIBUTION WIDTH 14.8 % (11.6-17.2); WHITE BLOOD COUNT 9.9 TH/MM3 (4.0-11.0)
[2016-09-16 15:59] LABS: ALT (GPT) 21 U/L (12-78); ANION GAP 10 MEQ/L (5-15); AST (GOT) 18 U/L (15-37); BICARBONATE 22.6 MEQ/L (21.0-32.0); BLOOD UREA NITROGEN 11 MG/DL (7-18); CHLORIDE 106 MEQ/L (98-107); GLOMERULAR FILTRATION RATE 94 ML/MIN (>89); POTASSIUM 3.6 MEQ/L (3.5-5.1); SODIUM (NA) 139 MEQ/L (136-145)
[2016-09-16 16:01] LABS: ALKALINE PHOSPHATASE 66 U/L (45-117); TOTAL BILIRUBIN ADULT 0.3 MG/DL (0.2-1.0)
[2016-09-16 16:15] LABS: AMPHETAMINE, URINE NEG (NEG); BARBITURATES, URINE NEG (NEG); COCAINE, URINE NEG (NEG)
== END 2016-09-16 17:05 | disposition home or self-care (01) ==
LOC: NEDAMB 13:46
DX: F10.129 Alcohol abuse with intoxication, unspecified (principal); I10 Essential (primary) hypertension; G20 Parkinson's disease; F41.9 Anxiety disorder, unspecified; E11.9 Type 2 diabetes mellitus without complications; F32.9 Major depressive disorder, single episode, unspecified; R56.9 Unspecified convulsions; M13.80 Other specified arthritis, unspecified site; F17.210 Nicotine dependence, cigarettes, uncomplicated
CPT/HCPCS: 80053; 80307; 85025; 99283

== ENCOUNTER 2016-09-19 14:43 | Emergency (ER) | payer MEDICAID, OTHER ==
[~2016-09-19] VITALS: Ht 180.3 cm; Wt 83.0 kg
[2016-09-19] MEDS ORDERED: SODIUM CHLOR 0.9% 1000 ML INJ 1,000 ML IV SCH (14:53)
[2016-09-19 14:54] VITALS: BP 157/67; PULSE 87; RESP 26; TEMP 99; O2SAT 94
[2016-09-19] MEDS ORDERED: THIAMINE INJ 100 MG in SODIUM CHLORIDE 0.9% INJ 100 ML IV ONE (15:00)
[2016-09-19 15:18] LABS: AUTOMATED NEUTROPHIL # 3.7 TH/MM3 (1.8-7.7); BASOPHIL # 0.1 TH/MM3 (0-0.2); BASOPHIL % 1.2 % (0.0-2.0); EOSINOPHIL # 0.7 TH/MM3 (0-0.4); EOSINOPHIL % 7.6 % (0.0-4.0); HEMATOCRIT 41.5 % (39.0-51.0); HEMO FLAGS DIFF FINAL; LYMPH % 36.1 % (9.0-44.0); LYMPHOCYTE # 3.1 TH/MM3 (1.0-4.8); MEAN CELL VOLUME 99.1 FL (80.0-100.0); MEAN CORPUSCULAR HEMOGLOBIN 34.5 PG (27.0-34.0); MEAN CORPUSCULAR HGB CONC 34.9 % (32.0-36.0); MONO % 11.8 % (0.0-8.0); NEUT % 43.3 % (16.0-70.0); PLATELET COUNT 339 TH/MM3 (150-450); RED BLOOD COUNT 4.19 MIL/MM3 (4.50-5.90); RED CELL DISTRIBUTION WIDTH 14.9 % (11.6-17.2); WHITE BLOOD COUNT 8.7 TH/MM3 (4.0-11.0)
--- NOTE | 2016-09-19 15:29 | PD ---
HPI Chief Complaint: Head Injury Time Seen by Provider: 15:25 Travel History International Travel<30 days: No Contact w/Intl Traveler<30days: No Traveled to known affect area: No History of Present Illness HPI 56-year-old male to presents to the ED for evaluation of fall. Patient comes here by ambulance for evaluation of this. Patient apparently was drinking with his friends and he had a fall from his wheelchair. Patient is for the most part wheelchair bound secondary to her chronic injury. He denies any other injuries. He does have a bruise to his left face. He does smell of alcohol. He is well known to staff that he comes to the Hospital multiple times. Most of his times that he comes is for alcohol. He denies any other medical complaints. He takes no blood thinners other than aspirin. He denies any pain anywhere else. He states that he drank only a couple of beers blood per ambulance report he had a huge bottle of beer. History is limited because of his intoxication. 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) Past Surgical History Other Surgery: Yes (RIGHT SHOULDER) Social History Alcohol Use: Yes (DAILY) Tobacco Use: Yes (2 CIGS/DAY) Substance Use: No Allergies-Medications (Allergen,Severity, Reaction): Coded Allergies: Penicillin (Verified Allergy, Unknown, 09/16/16) *MDRO Multi-Drug Resistant Organism (Verified Adverse Reaction, Unknown, ) 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 HEAD: Atraumatic. Normocephalic. EYES: Pupils equal and round 4 mm reactive to light and accommodation. No scleral icterus. No injection or drainage. ENT: No nasal bleeding or discharge. Mucous membranes pink and moist. Tongue is midline. No uvula deviation. NECK: Trachea midline. No JVD. CARDIOVASCULAR: Regular rate and rhythm. No murmurs, S3, S4. RESPIRATORY: No accessory muscle use. Clear to auscultation. Breath sounds equal bilaterally. GASTROINTESTINAL: Abdomen soft, non-tender, nondistended. Hepatic and splenic margins not palpable. MUSCULOSKELETAL: Extremities without clubbing, cyanosis, or edema. No obvious deformities. Full range of motion of the upper and lower extremities bilaterally. 2+ pulses bilaterally. NEUROLOGICAL: Awake and alert. No obvious cranial nerve deficits. Motor grossly within normal limits. Five out of 5 muscle strength in the arms and legs. Normal speech. PSYCHIATRIC: Appropriate mood and affect; insight and judgment normal. Data Data Last Documented VS Vital Signs Date Time Temp Pulse Resp B/P Pulse Ox O2 Delivery O2 Flow Rate FiO2 09/19/16 14:54 99.0 87 26 157/67 94 Room Air Orders Complete Blood Count With Diff (09/19/16 14:53) Comprehensive Metabolic Panel (09/19/16 14:53) Magnesium (Mg) (09/19/16 14:53) Chest, Single Ap (09/19/16 14:53) Ct Brain W/O Iv Contrast(Rout) (09/19/16 14:53) Iv Access Insert/Monitor (09/19/16 14:53) Alcohol (Ethanol) (09/19/16 14:53) Ct Facial Bones W/O Iv Cont (09/19/16 ) Ct Cerv Spine W/O Contrast (09/19/16 ) Sodium Chlor 0.9% 1000 Ml Inj (Ns 1000 M (09/19/16 14:53) Thiamine Inj (Thiamine Inj) (09/19/16 15:00) Labs Laboratory Tests Test 09/19/16 15:05 White Blood Count 8.7 TH/MM3 Red Blood Count 4.19 MIL/MM3 Hemoglobin 14.5 GM/DL Hematocrit 41.5 % Mean Corpuscular Volume 99.1 FL Mean Corpuscular Hemoglobin 34.5 PG Mean Corpuscular Hemoglobin 34.9 % Concent Red Cell Distribution Width 14.9 % Platelet Count 339 TH/MM3 Mean Platelet Volume 7.3 FL Neutrophils (%) (Auto) 43.3 % Lymphocytes (%) (Auto) 36.1 % Monocytes (%) (Auto) 11.8 % Eosinophils (%) (Auto) 7.6 % Basophils (%) (Auto) 1.2 % Neutrophils # (Auto) 3.7 TH/MM3 Lymphocytes # (Auto) 3.1 TH/MM3 Monocytes # (Auto) 1.0 TH/MM3 Eosinophils # (Auto) 0.7 TH/MM3 Basophils # (Auto) 0.1 TH/MM3 CBC Comment DIFF FINAL Differential Comment Sodium Level 140 MEQ/L Potassium Level 4.0 MEQ/L Chloride Level 106 MEQ/L Carbon Dioxide Level 20.5 MEQ/L Anion Gap 14 MEQ/L Blood Urea Nitrogen 8 MG/DL Creatinine 0.86 MG/DL Estimat Glomerular Filtration 92 ML/MIN Rate Random Glucose 87 MG/DL Calcium Level 8.6 MG/DL Magnesium Level 2.2 MG/DL Total Bilirubin 0.4 MG/DL Aspartate Amino Transf 34 U/L (AST/SGOT) Alanine Aminotransferase 23 U/L (ALT/SGPT) Alkaline Phosphatase 66 U/L Total Protein 7.8 GM/DL Albumin 3.5 GM/DL Ethyl Alcohol Level 353 MG/DL MDM Medical Decision Making Medical Screen Exam Complete: Yes Emergency Medical Condition: Yes Medical Record Reviewed: Yes Interpretation(s) CBC & BMP Diagram 09/19/16 15:05 alcohol elevated in the 300s Last Impressions Head CT 09/19/16 1453 Signed Impressions: Service Date/Time: Monday, September 19, 2016 15:06 - CONCLUSION: No bleed or other acute intracranial abnormality demonstrated. 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 Caleb Reyes MD Maxillofacial CT 09/19/16 0000 Signed Impressions: Service Date/Time: Monday, September 19, 2016 15:06 - CONCLUSION: No evidence of facial fracture. Chronic sinusitis. Caleb Reyes MD Cervical Spine CT 09/19/16 0000 Signed Impressions: Service Date/Time: Monday, September 19, 2016 15:06 - CONCLUSION: No fracture or subluxation of the cervical spine. Chronic degenerative changes are again noted. Caleb Reyes MD CXR negative Differential Diagnosis Alcohol intoxication versus head injury versus fall versus bleed versus alcoholism Narrative Course 56-year-old male that presents to the ED for evaluation of fall and alcohol abuse. Patient was properly examined and was found to have signs and symptoms very consistent what appears to be alcohol intoxication with fall. Imaging was ordered. Labs were ordered. Patient was started on IV fluids and thiamine. Labs and imaging showed elevated alcohol was no acute disease. Patient was reassured. At this time patient will be allowed to sleep of his intoxication until medically sober or he has a responsible adult who is sober to take him home. Patient's vitals and physical exam are reassuring. Case was discussed in my attending Dr. Flores who is in agreement with this plan. ED Nurse is aware of findings and plan. Diagnosis Primary Impression: Alcohol intoxication Qualified Code: F10.920 - Alcoholic intoxication without complication Additional Impressions: Fall Qualified Code: W19.XXXA - Fall, initial encounter Closed head injury Qualified Code: S09.90XA - Closed head injury, initial encounter Samuel Leigh Sep 19, 2016 15:29
--- NOTE | 2016-09-19 15:37 | RADRPT ---
EXAM DATE/TIME: 09/19/2016 15:06 [facility] COMPARISON: CT BRAIN W/O CONTRAST, June 21, 2016, 13:19. INDICATIONS : Fall, trauma to head. RADIATION DOSE: 69.15 CTDIvol (mGy) MEDICAL HISTORY : Seizures. Parkinsons. Hypertension.ETOH SURGICAL HISTORY : Non-responsive. ETOH ENCOUNTER: Initial ACUITY: 1 day PAIN SCALE: Non-responsive LOCATION: Left cranial TECHNIQUE: Multiple contiguous axial images were obtained of the head. Using automated exposure control and adj ustment of the mA and/or kV according to patient size, radiation dose was kept as low as reasonably a chievable to obtain optimal diagnostic quality images. DICOM format image data is available electro nically for review and comparison. FINDINGS: CEREBRUM: The ventricles are normal for age. No evidence of midline shift, mass lesion, hemorrhage or acute in farction. No extra-axial fluid collections are seen. Old right temporal and parietal lobe infarction again noted with encephalomalacia. POSTERIOR FOSSA: The cerebellum and brainstem are intact. The 4th ventricle is midline. The cerebellopontine angle i s unremarkable. EXTRACRANIAL: Maxillary predominant mucoperiosteal sinus thickening. SKULL: The calvaria is intact. No evidence of skull fracture. CONCLUSION: No bleed or other acute intracranial abnormality demonstrated. Old right temporal and parietal lobe i nfarcts and chronic sinusitis. Caleb Reyes MD on September 19, 2016 at 15:34 Board Certified Radiologist. This report was verified electronically.
[2016-09-19 15:39] LABS: ANION GAP 14 MEQ/L (5-15); AST (GOT) 34 U/L (15-37); BICARBONATE 20.5 MEQ/L (21.0-32.0); BLOOD UREA NITROGEN 8 MG/DL (7-18); CHLORIDE 106 MEQ/L (98-107); GLOMERULAR FILTRATION RATE 92 ML/MIN (>89); MAGNESIUM 2.2 MG/DL (1.5-2.5); SODIUM (NA) 140 MEQ/L (136-145)
--- NOTE | 2016-09-19 15:41 | RADRPT ---
EXAM DATE/TIME: 09/19/2016 15:06 [facility] COMPARISON: CT CERVICAL SPINE W/O CONTRAST, March 02, 2016, 23:39. INDICATIONS : Fall, Trauma to left face. RADIATION DOSE: 24.02 CTDIvol (mGy) MEDICAL HISTORY : Seizures. Parkinsons. Hypertension.ETOH SURGICAL HISTORY : Non-responsive. ENCOUNTER: Initial ACUITY: 1 day PAIN SCALE: Non-responsive LOCATION: neck TECHNIQUE: Volumetric scanning of the cervical spine was performed. Multiplanar reconstructions in the sagittal, coronal and oblique axial planes were performed. Using automated exposure control and adjustment o f the mA and/or kV according to patient size, radiation dose was kept as low as reasonably achievable to obtain optimal diagnostic quality images. DICOM format image data is available electronically f or review and comparison. FINDINGS: No evidence of fracture or subluxation of the cervical spine. Vertebral bodies have normal height. Disc space narrowing and bilateral uncovertebral and facet osteoarthritis noted at multiple levels, s evere at C4/C5, C5/C6 and C6/C7, moderate at C2/C3 and C3/C4. Broad protrusion again seen of the C3/C4 disc with left greater than right foraminal stenosis. Perivertebral soft tissues are within normal limits. CONCLUSION: No fracture or subluxation of the cervical spine. Chronic degenerative changes are again noted. Caleb Reyes MD on September 19, 2016 at 15:37 Board Certified Radiologist. This report was verified electronically.
--- NOTE | 2016-09-19 15:45 | RADRPT ---
EXAM DATE/TIME: 09/19/2016 15:06 [facility] COMPARISON: No previous studies available for comparison. INDICATIONS : Fall, ETOH RADIATION DOSE: 23.35 CTDIvol (mGy) MEDICAL HISTORY : Seizures. Parkinsons. Hypertension.ETOH SURGICAL HISTORY : None. ENCOUNTER: Initial ACUITY: 1 day PAIN SCORE: Non-responsive LOCATION: Left cranial TECHNIQUE: Volumetric scanning of the facial bones was performed. Using automated exposure control and adjustme nt of the mA and/or kV according to patient size, radiation dose was kept as low as reasonably achiev able to obtain optimal diagnostic quality images. DICOM format image data is available electronicall y for review and comparison. FINDINGS: ORBITS: The orbital and infraorbital osseous structures are intact. The retroconal structures have a normal configuration. No radiopaque foreign bodies are seen. NASAL BONE: The nasal bone and maxillary spine are intact ZYGOMATIC ARCHES: Symmetric without evidence of fracture. SINUSES: Chronic mucoperiosteal thickening seen of the sinuses, diffuse but especially ethmoid and maxillary a ir cells. NASAL CAVITY: The nasal septum is intact and midline. The lacrimal ducts are intact. SOFT TISSUES: No radiopaque foreign bodies seen. No soft-tissue swelling is seen. INTRACRANIAL: No intracranial air seen. CRIBIFORM PLATE: Grossly intact. CONCLUSION: No evidence of facial fracture. Chronic sinusitis. Caleb Reyes MD on September 19, 2016 at 15:43 Board Certified Radiologist. This report was verified electronically.
[2016-09-19 15:46] LABS: ALKALINE PHOSPHATASE 66 U/L (45-117); ALT (GPT) 23 U/L (12-78); TOTAL BILIRUBIN ADULT 0.4 MG/DL (0.2-1.0)
[2016-09-19 15:49] LABS: ALCOHOL 353 MG/DL (0-5)
--- NOTE | 2016-09-19 15:50 | RADRPT ---
EXAM DATE/TIME: 09/19/2016 15:15 [facility] COMPARISON: CHEST SINGLE AP, March 10, 2016, 15:19. INDICATIONS : Chest Pain MEDICAL HISTORY : Cerebrovascular disease. Seizures. Cardiovascular disease HTN, DIABETES SURGICAL HISTORY : None. ENCOUNTER: Initial ACUITY: 1 day PAIN SCORE: 0/10 LOCATION: Bilateral chest FINDINGS: A single view of the chest demonstrates the lungs to be symmetrically aerated without evidence of mas s, infiltrate or effusion. The cardiomediastinal contours are unremarkable. Osseous structures are intact. CONCLUSION: No evidence of acute cardiopulmonary disease. Caleb Reyes MD on September 19, 2016 at 15:49 Board Certified Radiologist. This report was verified electronically.
[2016-09-19] MEDS ORDERED: ONDANSETRON HCL 4 MG/2 ML VIAL IV PUSH PRN (16:00)
[2016-09-19] MEDS ORDERED: LORazepam 2 MG TAB PO PRN (16:00)
[2016-09-19] MEDS ORDERED: LORazepam 2 MG/ML VIAL IV PUSH PRN ×4 (16:00)
[2016-09-19] MEDS ORDERED: FLUMAZENIL 0.5 MG/5 ML VIAL IV PUSH PRN (16:00)
[2016-09-19] MEDS ORDERED: LORazepam 1 MG TAB PO PRN (16:00)
[2016-09-19 18:21] VITALS: BP 139/86; PULSE 94; RESP 16; O2SAT 95
[2016-09-19 20:50] VITALS: BP 140/90
== END 2016-09-19 20:49 | disposition home or self-care (01) ==
LOC: NEPC 14:43 → NEDAMB 20:49
DX: S09.90XA Unspecified injury of head, initial encounter (principal); F10.120 Alcohol abuse with intoxication, uncomplicated; W05.0XXA Fall from non-moving wheelchair, initial encounter
CPT/HCPCS: 70450; 70486; 71010; 72125; 80053; 80307; 83735; 85025; 96365; 96366; 99285; J3411; J7030

== ENCOUNTER 2016-10-08 18:06 | Emergency (ER) | payer MEDICAID ==
[~2016-10-08] VITALS: Ht 172.7 cm; Wt 85.0 kg
[2016-10-08 19:17] VITALS: BP 108/62; PULSE 84; RESP 16; TEMP 98.3; O2SAT 98
[2016-10-08 19:46] VITALS: BP 108/62; PULSE 84; RESP 14; TEMP 98.3; O2SAT 98
[2016-10-08] MEDS ORDERED: LEVE500 PO (20:37)
[2016-10-08 20:47] LABS: BASOPHIL % 0.7 % (0.0-2.0); EOSINOPHIL # 0.6 TH/MM3 (0-0.4); EOSINOPHIL % 9.4 % (0.0-4.0); HEMATOCRIT 38.9 % (39.0-51.0); HEMO FLAGS DIFF FINAL; LYMPH % 31.4 % (9.0-44.0); MEAN CELL VOLUME 100.7 FL (80.0-100.0); MEAN CORPUSCULAR HGB CONC 32.8 % (32.0-36.0); MONO % 11.6 % (0.0-8.0); NEUT % 46.9 % (16.0-70.0); PLATELET COUNT 256 TH/MM3 (150-450); RED BLOOD COUNT 3.87 MIL/MM3 (4.50-5.90); RED CELL DISTRIBUTION WIDTH 14.8 % (11.6-17.2); WHITE BLOOD COUNT 6.4 TH/MM3 (4.0-11.0)
[2016-10-08 20:58] LABS: ANION GAP 10 MEQ/L (5-15); AST (GOT) 15 U/L (15-37); BICARBONATE 20.8 MEQ/L (21.0-32.0); BLOOD UREA NITROGEN 8 MG/DL (7-18); CHLORIDE 108 MEQ/L (98-107); GLOMERULAR FILTRATION RATE 129 ML/MIN (>89); POTASSIUM 3.5 MEQ/L (3.5-5.1); SODIUM (NA) 139 MEQ/L (136-145)
[2016-10-08 20:59] LABS: ALT (GPT) 17 U/L (12-78)
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
[2016-10-08 21:01] LABS: ALKALINE PHOSPHATASE 52 U/L (45-117); TOTAL BILIRUBIN ADULT 0.2 MG/DL (0.2-1.0)
[2016-10-08 21:03] LABS: ALCOHOL 203 MG/DL (0-5)
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
[2016-10-08] MEDS ORDERED: levETIRAcetam 500 MG TAB PO ONE (23:00)
== END 2016-10-08 23:25 | disposition home or self-care (01) ==
LOC: NEDAMB 18:06
DX: F10.129 Alcohol abuse with intoxication, unspecified (principal); S09.90XA Unspecified injury of head, initial encounter; G40.909 Epilepsy, unspecified, not intractable, without status epilepticus; I10 Essential (primary) hypertension; G20 Parkinson's disease; F17.210 Nicotine dependence, cigarettes, uncomplicated; E87.6 Hypokalemia; E11.9 Type 2 diabetes mellitus without complications; W05.0XXA Fall from non-moving wheelchair, initial encounter
CPT/HCPCS: 70450; 80053; 80177; 80307; 85025; 99284

== ENCOUNTER 2016-10-23 16:58 | Emergency (ER) | payer MEDICAID ==
[~2016-10-23] VITALS: Ht 177.8 cm; Wt 80.0 kg
[2016-10-23 17:02] VITALS: BP 140/73; PULSE 74; RESP 20; TEMP 97.8; O2SAT 98
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
== END 2016-10-23 18:17 | disposition home or self-care (01) ==
LOC: NEPD 16:58
DX: G40.909 Epilepsy, unspecified, not intractable, without status epilepticus (principal); M19.90 Unspecified osteoarthritis, unspecified site; F41.9 Anxiety disorder, unspecified; F32.9 Major depressive disorder, single episode, unspecified; E11.9 Type 2 diabetes mellitus without complications; I10 Essential (primary) hypertension; G20 Parkinson's disease; F17.210 Nicotine dependence, cigarettes, uncomplicated; Z86.73 Personal history of transient ischemic attack (TIA), and cerebral infarction without residual deficits
CPT/HCPCS: 99283

== ENCOUNTER 2016-11-07 10:16 | Observation (INO) | payer MEDICAID ==
[2016-11-07] VITALS (10 sets, daily range): BP systolic 137–172; BP diastolic 82–94; PULSE 66–112; RESP 17–20; TEMP 98.1–99; O2SAT 97–100
[~2016-11-07] VITALS: Ht 180.3 cm; Wt 80.0 kg
[2016-11-07] MEDS ORDERED: LORazepam 2 MG/ML VIAL ONE (10:20)
[2016-11-07] MEDS ORDERED: ASPI81CH CHEW (10:21)
[2016-11-07] MEDS ORDERED: LORazepam 2 MG/ML VIAL IVS ONE (10:30)
[2016-11-07] MEDS ORDERED: THIAMINE HCL 200 MG/2 ML VIAL IM ONE (10:30)
[2016-11-07] MEDS ORDERED: levETIRAcetam 1000 MG INJ 100 ML IV ONE (10:30)
[2016-11-07] MEDS ORDERED: SODIUM CHLORIDE 0.9% FLUSH 10 ML FLUSH IVF PRN (10:30)
[2016-11-07 10:41] LABS: AUTOMATED NEUTROPHIL # 5.7 TH/MM3 (1.8-7.7); BASOPHIL # 0.1 TH/MM3 (0-0.2); BASOPHIL % 0.8 % (0.0-2.0); EOSINOPHIL % 0.6 % (0.0-4.0); HEMATOCRIT 43.8 % (39.0-51.0); HEMO FLAGS DIFF FINAL; LYMPH % 14.7 % (9.0-44.0); LYMPHOCYTE # 1.2 TH/MM3 (1.0-4.8); MEAN CELL VOLUME 99.6 FL (80.0-100.0); MEAN CORPUSCULAR HEMOGLOBIN 32.9 PG (27.0-34.0); MONO % 13.3 % (0.0-8.0); NEUT % 70.6 % (16.0-70.0); PLATELET COUNT 286 TH/MM3 (150-450); RED CELL DISTRIBUTION WIDTH 14.7 % (11.6-17.2)
[2016-11-07 11:36] LABS: ALKALINE PHOSPHATASE 85 U/L (45-117); TOTAL BILIRUBIN ADULT 0.5 MG/DL (0.2-1.0)
[2016-11-07 11:38] LABS: ALT (GPT) 22 U/L (12-78); ANION GAP 11 MEQ/L (5-15); AST (GOT) 29 U/L (15-37); BICARBONATE 22.6 MEQ/L (21.0-32.0); BLOOD UREA NITROGEN 6 MG/DL (7-18); CHLORIDE 103 MEQ/L (98-107); GLOMERULAR FILTRATION RATE 67 ML/MIN (>89); POTASSIUM 4.3 MEQ/L (3.5-5.1); SODIUM (NA) 137 MEQ/L (136-145)
--- NOTE | 2016-11-07 11:38 | RADRPT ---
EXAM DATE/TIME: 11/07/2016 10:54 [facility] COMPARISON: CT BRAIN W/O CONTRAST, October 08, 2016, 20:38. INDICATIONS : Seizure. RADIATION DOSE: 56.35 CTDIvol (mGy) MEDICAL HISTORY : Seizures. Hypertension. Stroke. SURGICAL HISTORY : None. ENCOUNTER: Initial ACUITY: 1 day PAIN SCALE: 0/10 LOCATION: cranial TECHNIQUE: Multiple contiguous axial images were obtained of the head. Using automated exposure control and adj ustment of the mA and/or kV according to patient size, radiation dose was kept as low as reasonably a chievable to obtain optimal diagnostic quality images. DICOM format image data is available electro nically for review and comparison. FINDINGS: CEREBRUM: There is mild cerebral atrophy. Ventricles are normal. There is stable and subtle malacia in the righ t frontotemporal region. No evidence of midline shift, mass lesion, hemorrhage or acute infarction. No extra-axial fluid collections are seen. POSTERIOR FOSSA: The cerebellum and brainstem demonstrate no acute finding. The 4th ventricle is midline. The cerebe llopontine angle is unremarkable. EXTRACRANIAL: There is mucoperiosteal thickening within the maxillary antra bilaterally. SKULL: The calvaria is intact. No evidence of skull fracture. CONCLUSION: 1. Stable noncontrast head CT. No acute finding is identified. 2. Stable right frontotemporal encephalomalacia. Caleb Harding MD on November 07, 2016 at 11:34 Board Certified Radiologist. This report was verified electronically.
[2016-11-07 11:39] LABS: ALCOHOL LESS THAN 3 MG/DL (0-5)
[2016-11-07 14:23] LABS: BLOOD, URINE NEG (NEG); GLUCOSE,URINE NEG (NEG); HYALINE CAST, URINE 3 /lpf (RARE); KETONE, URINE NEG (NEG); MUCUS URINE FEW /lpf (OCC); NITRITE,URINE NEG (NEG); URINE COLOR YELLOW (YELLW/STRAW)
[2016-11-07 14:24] LABS: COMMENT (UR) CATH-CULT NOT IND; CULTURE IF INDICATED CATH CULTURE NOT IND
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
[2016-11-07] MEDS ORDERED: ONDANSETRON HCL 4 MG/2 ML VIAL IV PUSH PRN (16:15)
[2016-11-07] MEDS ORDERED: ACETAMINOPHEN 325 MG TAB PO PRN (16:15)
[2016-11-07] MEDS ORDERED: LORazepam 2 MG/ML VIAL IV PUSH PRN (16:15)
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
[2016-11-08] VITALS (7 sets, daily range): BP systolic 118–176; BP diastolic 73–93; PULSE 54–96; RESP 16–18; TEMP 97.6–98.7; O2SAT 95–98
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
[2016-11-08] MEDS ORDERED: INFLUENZA VIRUS VACCINE (QUADRIVALENT) 0.5 ML SYR IM ONE (10:00)
[2016-11-08] MEDS: ENOXAPARIN SODIUM 40 MG/0.4 ML SYRINGE SQ SCH (10:28)
[2016-11-08] MEDS: MULTIVITAMIN TAB PO SCH (10:28)
[2016-11-08] MEDS: THIAMINE HCL 100 MG TAB PO SCH (10:28)
[2016-11-08] MEDS ORDERED: NICOTINE 21 MG/24 HR PATCH T-DERMAL SCH (11:00)
--- NOTE | 2016-11-08 11:03 | HHI.PR ---
Subjective Remarks in no distress. no seizures over night. has some pain to the neck. d/w the RN. Objective Vitals Vital Signs Date Time Temp Pulse Resp B/P (MAP) Pulse Ox O2 Delivery O2 Flow Rate FiO2 11/08/16 07:59 98.1 66 16 176/93 (120) 98 11/08/16 04:06 97.6 60 18 159/87 (111) 98 11/08/16 04:02 78 11/08/16 00:01 54 11/07/16 23:23 98.1 66 19 137/82 (100) 99 11/07/16 20:12 78 11/07/16 20:08 98.3 76 19 172/88 (116) 100 11/07/16 17:47 70 20 164/84 (110) 99 11/07/16 17:28 82 17 167/88 (114) 98 11/07/16 16:00 72 17 161/86 (111) 98 Room Air 11/07/16 14:00 87 17 137/86 (103) 98 Room Air 11/07/16 12:00 78 19 162/94 (116) 98 Room Air I/O 11/07/16 11/07/16 11/07/16 11/08/16 11/08/16 11/08/16 07:00 15:00 23:00 07:00 15:00 23:00 Intake Total 100 ml Balance 100 ml Intake IV Total 100 ml # Voids 1 1 Result Diagram: 11/07/16 1030 11/07/16 1030 Imaging Last Impressions Head CT 11/07/16 0000 Signed Impressions: Service Date/Time: Monday, November 07, 2016 10:54 - CONCLUSION: 1. Stable noncontrast head CT. No acute finding is identified. 2. Stable right frontotemporal encephalomalacia. Caleb Harding MD Objective Remarks GENERAL: This is a well-nourished, well-developed patient, in no apparent distress. CARDIOVASCULAR: Regular rate and regular rhythm without murmurs, gallops, or rubs. RESPIRATORY: Clear to auscultation. Breath sounds equal bilaterally. No wheezes , rales, or rhonchi. GASTROINTESTINAL: Abdomen soft, non-tender, nondistended. Normal, active bowel sounds MUSCULOSKELETAL: Extremities without clubbing, cyanosis, or edema. NEURO: Alert & Oriented x4 to person, place, time, situation. Medications and IVs Current Medications Lorazepam (Ativan Inj) 2 mg STK-MED ONCE .ROUTE Last administered on 11/07/16 10:24; Start 11/07/16 at 10:20; Stop 11/07/16 at 10:21; Status DC Sodium Chloride (NS Flush) 2 ml UNSCH PRN IVF FLUSH AFTER USING IV ACCESS; Start 11/07/16 at 10:30 Lorazepam (Ativan Inj) 2 mg ONCE ONCE IVS ; Start 11/07/16 at 10:30; Stop 11/07 at 10:31; Status DC Thiamine HCl (Thiamine Inj) 100 mg ONCE ONCE IM Last administered on 10:36; Start 11/07/16 at 10:30; Stop 11/07/16 at 10:31; Status DC Levetriacetam 100 ml @ 400 mls/hr BOLUS ONCE IV Last administered on 10:37; Start 11/07/16 at 10:30; Stop 11/07/16 at 10:44; Status DC Lorazepam (Ativan Inj) 1 mg Q15M PRN IV PUSH SEIZURE; Start 11/07/16 at 16:15 Ondansetron HCl (Zofran Inj) 4 mg Q8HR PRN IV PUSH NAUSEA; Start 11/07/16 at 16 :15 Acetaminophen (Tylenol) 650 mg Q4H PRN PO PAIN 1-10/FEVER Last administered on 11/07/16 18:47; Start 11/07/16 at 16:15 Multivitamins (Theragran) 1 tab DAILY PO Last administered on 11/08/16 10:28; Start 11/08/16 at 09:00 Thiamine HCl (Vitamin B1) 100 mg DAILY PO Last administered on 11/08/16 10:28 ; Start 11/08/16 at 09:00 Enoxaparin Sodium (Lovenox Inj) 40 mg Q24H SQ Last administered on 11/08/16 10 :28; Start 11/08/16 at 09:00 Influenza Virus Vaccine (Flu (Quadrivalent) Vaccine Inj) 0.5 ml ONCE ONCE IM ; Start 11/08/16 at 10:00; Stop 11/08/16 at 10:01; Status DC Levetriacetam (Keppra) 750 mg BID PO ; Start 11/08/16 at 09:30 A/P Assessment and Plan - seizure with history of TBI continue with neuro-checks and seizure precautions- ativan prn neurology consult appreciated and started on Keppra- CT head with no acute abnormality -alcohol abuser- continue thiamine and multivitamin- ativan as needed -occasional elevated BP's- will monitor for now. -consult PT -DVT prophylaxis with Lovenox Discharge Planning dc planning tomorrow if stable with no further seizures. Catrachita Hercules MD Nov 08, 2016 11:03
[2016-11-08] MEDS: levETIRAcetam 250 MG TAB PO SCH ×2 (11:21→19:45)
--- NOTE | 2016-11-08 15:34 | EKG ---
Date Performed: 11/07/2016 Time Performed: 10:41:10 PTAGE: 56 years EKG: Sinus rhythm NORMAL RHYTHM ECG Since PREVIOUS TRACING , no significant change noted PREVIOUS TRACIN03/10/2016 15.33 DOCTOR: Cisco Gill Interpretating Date/Time 11/08/2016 15:33:31
[2016-11-09 00:23] VITALS: BP 179/95; PULSE 96; RESP 18; TEMP 98.3; O2SAT 95
[2016-11-09 04:09] VITALS: BP 139/70; PULSE 87; RESP 18; TEMP 98.3; O2SAT 98
[2016-11-09] MEDS: THIAMINE HCL 100 MG TAB PO SCH (08:51)
[2016-11-09] MEDS: levETIRAcetam 250 MG TAB PO SCH (08:51)
[2016-11-09] MEDS: MULTIVITAMIN TAB PO SCH (08:51)
[2016-11-09] MEDS: ENOXAPARIN SODIUM 40 MG/0.4 ML SYRINGE SQ SCH (08:52)
[2016-11-09] MEDS ORDERED: REMOVE OLD PATCH T-DERMAL SCH (09:00)
[2016-11-09 09:14] VITALS: BP 184/97; PULSE 92; RESP 16; TEMP 98.2; O2SAT 96
--- NOTE | 2016-11-09 11:14 | HHI.PR ---
Subjective Remarks in no distress. resting comfortably. d/w the RN and no seizures over night. Objective Vitals Vital Signs Date Time Temp Pulse Resp B/P (MAP) Pulse Ox O2 Delivery O2 Flow Rate FiO2 11/09/16 09:14 98.2 92 16 184/97 (126) 96 11/09/16 04:09 98.3 87 18 139/70 (93) 98 11/09/16 00:23 98.3 96 18 179/95 (123) 95 11/08/16 20:12 98.4 87 18 120/75 (90) 97 11/08/16 17:02 98.4 96 18 155/73 (100) 95 Result Diagram: 11/07/16 1030 11/07/16 1030 Imaging Last Impressions Head CT 11/07/16 0000 Signed Impressions: Service Date/Time: Monday, November 07, 2016 10:54 - CONCLUSION: 1. Stable noncontrast head CT. No acute finding is identified. 2. Stable right frontotemporal encephalomalacia. Caleb Harding MD Objective Remarks GENERAL: This is a well-nourished, well-developed patient, in no apparent distress. CARDIOVASCULAR: Regular rate and regular rhythm without murmurs, gallops, or rubs. RESPIRATORY: Clear to auscultation. Breath sounds equal bilaterally. No wheezes , rales, or rhonchi. GASTROINTESTINAL: Abdomen soft, non-tender, nondistended. Normal, active bowel sounds MUSCULOSKELETAL: Extremities without clubbing, cyanosis, or edema. NEURO: Alert & Oriented x4 to person, place, time, situation. Procedures none Medications and IVs Current Medications Lorazepam (Ativan Inj) 2 mg STK-MED ONCE .ROUTE Last administered on 11/07/16 10:24; Start 11/07/16 at 10:20; Stop 11/07/16 at 10:21; Status DC Sodium Chloride (NS Flush) 2 ml UNSCH PRN IVF FLUSH AFTER USING IV ACCESS; Start 11/07/16 at 10:30 Lorazepam (Ativan Inj) 2 mg ONCE ONCE IVS ; Start 11/07/16 at 10:30; Stop 11/07 at 10:31; Status DC Thiamine HCl (Thiamine Inj) 100 mg ONCE ONCE IM Last administered on 10:36; Start 11/07/16 at 10:30; Stop 11/07/16 at 10:31; Status DC Levetriacetam 100 ml @ 400 mls/hr BOLUS ONCE IV Last administered on 10:37; Start 11/07/16 at 10:30; Stop 11/07/16 at 10:44; Status DC Lorazepam (Ativan Inj) 1 mg Q15M PRN IV PUSH SEIZURE; Start 11/07/16 at 16:15 Ondansetron HCl (Zofran Inj) 4 mg Q8HR PRN IV PUSH NAUSEA; Start 11/07/16 at 16 :15 Acetaminophen (Tylenol) 650 mg Q4H PRN PO PAIN 1-10/FEVER Last administered on 11/07/16 18:47; Start 11/07/16 at 16:15 Multivitamins (Theragran) 1 tab DAILY PO Last administered on 11/09/16 08:51; Start 11/08/16 at 09:00 Thiamine HCl (Vitamin B1) 100 mg DAILY PO Last administered on 11/09/16 08:51 ; Start 11/08/16 at 09:00 Enoxaparin Sodium (Lovenox Inj) 40 mg Q24H SQ Last administered on 11/09/16 08 :52; Start 11/08/16 at 09:00 Influenza Virus Vaccine (Flu (Quadrivalent) Vaccine Inj) 0.5 ml ONCE ONCE IM ; Start 11/08/16 at 10:00; Stop 11/08/16 at 10:01; Status DC Levetriacetam (Keppra) 750 mg BID PO Last administered on 11/09/16 08:51; Start 11/08/16 at 09:30 Nicotine (Habitrol 21 Mg Patch.24 Hr) 1 patch DAILY T-DERMAL Last administered on 11/08/16 11:47; Start 11/08/16 at 11:00 Miscellaneous Information 1 DAILY T-DERMAL Last administered on 11/09/16 08:52 ; Start 11/09/16 at 09:00 A/P Assessment and Plan - seizure with history of TBI continue with neuro-checks and seizure precautions- ativan prn neurology consult appreciated and started on Keppra- CT head with no acute abnormality -alcohol abuser- continue thiamine and multivitamin- ativan as needed -occasional elevated BP's- will monitor for nowf/u as outpatient. -consulted PT -DVT prophylaxis with Lovenox Discharge Planning discharge today. see med list. f/u; pcp and neurology. case management for dc needs. d/w the patient and RN. Catrachita Hercules MD Nov 09, 2016 11:14
[2016-11-09] MEDS ORDERED: THERTAB15 PO (11:16)
[2016-11-09] MEDS ORDERED: GNP100TA3 PO (11:16)
[2016-11-09] MEDS ORDERED: LEVE250 PO (11:16)
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
== END 2016-11-09 12:53 | disposition home or self-care (01) ==
LOC: NEPE 10:16 → NEDA 15:54 → NEPHCDU 17:32
PROVIDERS: ADMIT Internal Medicine; ATTEND Internal Medicine
DX: G40.911 Epilepsy, unspecified, intractable, with status epilepticus (principal); Z91.14 Patient's other noncompliance with medication regimen; F10.10 Alcohol abuse, uncomplicated; R53.1 Weakness; M21.371 Foot drop, right foot; G81.94 Hemiplegia, unspecified affecting left nondominant side; Z59.0 Homelessness; Z87.820 Personal history of traumatic brain injury; Z79.82 Long term (current) use of aspirin; Z99.3 Dependence on wheelchair
CPT/HCPCS: 70450; 80053; 80307; 81001; 85025; 93005; 96365; 96372; 96375; 97162; 99291; G0378; G8987; G8988; J1650; J1953; J3411; J2060

== ENCOUNTER 2017-05-14 20:31 | Emergency (ER) | payer MEDICAID ==
[~2017-05-14] VITALS: Ht 177.8 cm; Wt 74.0 kg
[~2017-05-14 20:31] MED LIST changes: +ASPI-516 CHEW; -ASPI325T PO; +LEVE250 PO; -LEVE500 PO; +THERTAB15 PO; +THIA100 PO
[2017-05-14 20:40] VITALS: BP 119/76; PULSE 74; RESP 18; TEMP 98.7; O2SAT 99
[2017-05-14] MEDS ORDERED: HALOPERIDOL LACTATE 5 MG/ML AMP IM ONE (21:00)
[2017-05-14] MEDS ORDERED: LORazepam 2 MG/ML VIAL IM ONE (21:00)
--- NOTE | 2017-05-14 21:35 | PD ---
HPI Chief Complaint: Alcohol/Drug Intoxication Time Seen by Provider: 20:43 Travel History International Travel<30 days: No Contact w/Intl Traveler<30days: No Traveled to known affect area: No History of Present Illness HPI 57-year-old white male presents emergency department under Marchman act due to alcohol intoxication. The patient was found heavily intoxicated and unable to care for himself. He was unable to walk. Patient was brought in for evaluation treatment. Patient denies any suicidal or homicidal ideation. Patient states that he is not intoxicated. PFSH Past Medical History Hx Anticoagulant Therapy: Yes (ASA 325MG ) Arthritis: Yes Anxiety: Yes Depression: Yes Cancer: No Cardiovascular Problems: Yes High Cholesterol: Yes Cerebrovascular Accident: Yes Diabetes: Yes Patient Takes Glucophage: No Diminished Hearing: No Gastrointestinal Disorders: No Genitourinary: No Headaches: Yes Hypertension: Yes Insomnia: Yes Musculoskeletal: Yes Neurologic: Yes Parkinson's Disease: Yes Psychiatric: Yes Reproductive: No Respiratory: No Integumentary: Yes Immunizations Current: Yes Seizures: Yes Tetanus Vaccination: > 5 Years Influenza Vaccination: Yes Past Surgical History Other Surgery: Yes (RIGHT SHOULDER) Social History Alcohol Use: Yes (DAILY) Tobacco Use: Yes (2 CIGS/DAY) Substance Use: No Allergies-Medications (Allergen,Severity, Reaction): Coded Allergies: penicillin G (Unverified Allergy, Unknown, 05/14/17) Reported Meds & Prescriptions Reported Meds & Active Scripts Active Thera/Beta-Carotene (Multiple Vitamin) 1 Tab Tab 1 Tab PO DAILY 30 Days Gnp Vitamin B-1 (Thiamine HCl) 100 Mg Tab 100 Mg PO DAILY 30 Days Keppra (Levetiracetam) 250 Mg Tab 750 Mg PO BID 30 Days Reported Aspirin 81 Mg Chew 81 Mg CHEW DAILY Review of Systems ROS Limitations: Intoxication Physical Exam Narrative GENERAL: Well-nourished, well-developed patient. HEAD: Normocephalic and atraumatic.Patient is a slight abrasion to the anterior forehead which she sustained transferring from the [facility] stretcher to the hospital stretcher. There was no evidence of any trauma prior to this. EYES: No scleral icterus. No injection or drainage. ENT: No nasal drainage noted. Mucous membranes pink. Airway patent. NECK: Supple, trachea midline. Moves head freely without obvious discomfort. CARDIOVASCULAR: Regular rate and rhythm without murmurs, gallops, or rubs. RESPIRATORY: Breath sounds equal bilaterally. No accessory muscle use. GASTROINTESTINAL: Abdomen soft, non-tender, nondistended. EXTREMITIES: No cyanosis or edema. BACK: Nontender without obvious deformity. No CVA tenderness. NEURO: Patient is alert and oriented. Patient is ataxic and appears intoxicated. Nonfocal. Slurred speech. PSYCH: No delusions. No auditory or visual hallucinations. Data Data Last Documented VS Vital Signs Date Time Temp Pulse Resp B/P (MAP) Pulse Ox O2 Delivery O2 Flow Rate FiO2 05/14/17 20:40 98.7 74 18 119/76 (90) 99 Orders Orders Haloperidol Inj (Haldol Inj) (05/14/17 21:00) Lorazepam Inj (Ativan Inj) (05/14/17 21:00) Restraints Non-Violent AZUCENA.Q3H (05/14/17 20:49) [facility] Medical Decision Making Medical Screen Exam Complete: Yes Emergency Medical Condition: Yes Medical Record Reviewed: Yes Differential Diagnosis Differential diagnoses: Alcohol intoxication, substance abuse, electrolyte abnormality, malingering Narrative Course Patient's Accu-Chek is 68. He is given something to drink and eat. The patient will be allowed to sober up here in the ER once he exhibits sobriety the patient Marchman act will be lifted. In order for nonviolent restraints have been given to the nurse along with sedation if necessary. The patient has been cooperative throughout the night. He has not required sedation or restraint. He has now sobered up and is cooperative and ambulatory. Patient is medically stable for discharge. This is alcohol intoxication Diagnosis Primary Impression: Alcohol intoxication Qualified Codes: F10.920 - Alcohol use, unspecified with intoxication, uncomplicated Patient Instructions: General Instructions Additional Instructions: Rest. Increase fluids. Avoid alcohol. Avoid illegal substances. Follow-up with [facility] for detox. Do not operate a car or any heavy machinery under the influence of alcohol or drugs. Follow-up with a medical doctor this week. Return to the ER for emergencies Med/Other Pt SpecificInfo: No Meds Exist/No RX given Disposition: 01 DISCHARGE HOME Condition: Stable Dony Johnson May 14, 2017 21:35
[2017-05-15] MEDS ORDERED: LEVE250 PO (20:20)
== END 2017-05-15 05:45 | disposition home or self-care (01) ==
LOC: NEPD 20:31
DX: F10.129 Alcohol abuse with intoxication, unspecified (principal); F19.90 Other psychoactive substance use, unspecified, uncomplicated; F41.9 Anxiety disorder, unspecified; F32.9 Major depressive disorder, single episode, unspecified; E78.00 Pure hypercholesterolemia, unspecified; E11.9 Type 2 diabetes mellitus without complications; I10 Essential (primary) hypertension; G20 Parkinson's disease; Z86.73 Personal history of transient ischemic attack (TIA), and cerebral infarction without residual deficits
CPT/HCPCS: 99285

== ENCOUNTER 2017-05-15 18:32 | Emergency (ER) | payer MEDICAID ==
[~2017-05-15] VITALS: Ht 180.3 cm; Wt 82.0 kg
[2017-05-15 18:40] VITALS: BP 139/64; PULSE 100; RESP 16; TEMP 98; O2SAT 100
[2017-05-15] MEDS ORDERED: ACETAMINOPHEN 325 MG TAB PO ONE (19:15)
--- NOTE | 2017-05-15 19:43 | RADRPT ---
EXAM DATE/TIME: 05/15/2017 19:24 [facility] COMPARISON: CT BRAIN W/O CONTRAST, November 07, 2016, 10:54. INDICATIONS : Episode of dysphasia today. RADIATION DOSE: 48.56 CTDIvol (mGy) MEDICAL HISTORY : Stroke. Parkinsons. Hypertension. SURGICAL HISTORY : None. ENCOUNTER: Initial ACUITY: 1 day PAIN SCALE: 0/10 LOCATION: Bilateral head TECHNIQUE: Multiple contiguous axial images were obtained of the head. Using automated exposure control and adj ustment of the mA and/or kV according to patient size, radiation dose was kept as low as reasonably a chievable to obtain optimal diagnostic quality images. DICOM format image data is available electro nically for review and comparison. 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 No signs of acute infarct, hem orrhage, or mass. No fractures. CONCLUSION: No acute disease. Audie Clayton MD on May 15, 2017 at 19:40 Board Certified Radiologist. This report was verified electronically.
--- NOTE | 2017-05-15 19:49 | PD ---
HPI Chief Complaint: Medical Clearance Time Seen by Provider: 18:59 Travel History International Travel<30 days: No Contact w/Intl Traveler<30days: No Traveled to known affect area: No History of Present Illness HPI 57-year-old male arrives by E back. He reports a tremor in the left hand lasting less than a minute. He believes this was a TIA. He also reports left cheek tremor. Onset occurred about 4 hours prior to ER arrival and resolved as noted within less than a minute. He reports a history of seizures. He reports he was taking Keppra one-point however has not been compliant due to lack of primary follow-up. He also reports chronic musculoskeletal pain. L hand flexion observed by patient. PFSH Past Medical History Hx Anticoagulant Therapy: Yes (ASA 325MG ) Arthritis: Yes Anxiety: Yes Depression: Yes Cancer: No Cardiovascular Problems: Yes High Cholesterol: Yes Cerebrovascular Accident: Yes (TIA 2011) Diabetes: Yes Diminished Hearing: No Gastrointestinal Disorders: No Genitourinary: No Headaches: Yes Hypertension: Yes Insomnia: Yes Musculoskeletal: Yes Neurologic: Yes Parkinson's Disease: Yes Psychiatric: Yes Reproductive: No Respiratory: No Integumentary: Yes Immunizations Current: Yes Seizures: Yes Past Surgical History Other Surgery: Yes (RIGHT SHOULDER) Social History Alcohol Use: Yes (DAILY) Tobacco Use: Yes (2 CIGS/DAY) Substance Use: No Allergies-Medications (Allergen,Severity, Reaction): Coded Allergies: penicillin G (Unverified Allergy, Unknown, 05/14/17) Reported Meds & Prescriptions Reported Meds & Active Scripts Active Keppra (Levetiracetam) 250 Mg Tab 750 Mg PO BID 30 Days Reported Aspirin 81 Mg Chew 81 Mg CHEW DAILY Review of Systems Except as stated in HPI: all other systems reviewed are Neg General / Constitutional: No: Fever Eyes: No: Blurred Vision HENT: No: Headaches, Rhinitis Cardiovascular: No: Palpitations Physical Exam Narrative GENERAL: Well-nourished well-developed 49-year-old male no acute distress Vital Signs Date Time Temp Pulse Resp B/P (MAP) Pulse Ox O2 Delivery O2 Flow Rate FiO2 05/15/17 18:44 100 16 05/15/17 18:40 98.0 100 16 139/64 (89) 100 SKIN: Warm and dry. HEAD: Atraumatic. Normocephalic. EYES: Pupils equal and round. No scleral icterus. No injection or drainage. ENT: No nasal bleeding or discharge. Mucous membranes pink and moist. NECK: Trachea midline. No JVD. CARDIOVASCULAR: Regular rate and rhythm. RESPIRATORY: No accessory muscle use. Clear to auscultation. Breath sounds equal bilaterally. GASTROINTESTINAL: Abdomen soft, non-tender, nondistended. Hepatic and splenic margins not palpable. MUSCULOSKELETAL: Extremities without clubbing, cyanosis, or edema. No obvious deformities. NEUROLOGICAL: Awake and alert. No obvious cranial nerve deficits. Motor grossly within normal limits. Five out of 5 muscle strength in the arms and legs. Normal speech. PSYCHIATRIC: Appropriate mood and affect; insight and judgment normal. Data Data Last Documented VS Vital Signs Date Time Temp Pulse Resp B/P (MAP) Pulse Ox O2 Delivery O2 Flow Rate FiO2 05/15/17 18:44 100 16 05/15/17 18:40 98.0 139/64 (89) [address] Brain W/O Iv Contrast(Rout) (05/15/17 18:59) Acetaminophen (Tylenol) (05/15/17 19:15) MDM Medical Decision Making Medical Screen Exam Complete: Yes Emergency Medical Condition: Yes Medical Record Reviewed: Yes Differential Diagnosis TIA, malingering, CVA, seizure Narrative Course Head CT is unremarkable. Overall it is considered much less likely the patient experienced a TIA given the positive nature of the symptoms. Pt received Tylenol for chronic MSK pains. Patient is stable and ready for discharge. Diagnosis Primary Impression: Tremor Referrals: Yadiel Lemus MD PhD 2 days Med/Other Pt SpecificInfo: No Change to Meds Disposition: 01 DISCHARGE HOME Condition: Stable Madan Recinos MD May 15, 2017 19:49
[2017-05-15] MEDS ORDERED: LEVE250 PO (20:20)
== END 2017-05-15 21:00 | disposition home or self-care (01) ==
LOC: NEPD 18:32
DX: R25.1 Tremor, unspecified (principal); R56.9 Unspecified convulsions; F41.9 Anxiety disorder, unspecified; E78.00 Pure hypercholesterolemia, unspecified; E11.9 Type 2 diabetes mellitus without complications; I10 Essential (primary) hypertension; G20 Parkinson's disease; F17.210 Nicotine dependence, cigarettes, uncomplicated; Z86.73 Personal history of transient ischemic attack (TIA), and cerebral infarction without residual deficits
CPT/HCPCS: 70450; 99283

== ENCOUNTER 2017-06-23 21:28 | Emergency (ER) | payer MEDICAID, OTHER ==
[~2017-06-23 21:28] MED LIST changes: -THERTAB15 PO; -THIA100 PO
[2017-06-23 21:37] VITALS: BP 112/69; PULSE 92; RESP 16; TEMP 97.2; O2SAT 95
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
== END 2017-06-24 06:42 | disposition home or self-care (01) ==
LOC: NEDAMB 21:28 → NEPD 06-24 06:42
DX: F10.129 Alcohol abuse with intoxication, unspecified (principal); F17.210 Nicotine dependence, cigarettes, uncomplicated; E11.9 Type 2 diabetes mellitus without complications; I10 Essential (primary) hypertension; G20 Parkinson's disease; M19.90 Unspecified osteoarthritis, unspecified site; F41.9 Anxiety disorder, unspecified; F32.9 Major depressive disorder, single episode, unspecified; Z86.69 Personal history of other diseases of the nervous system and sense organs; Z86.73 Personal history of transient ischemic attack (TIA), and cerebral infarction without residual deficits
CPT/HCPCS: 99281

== ENCOUNTER 2017-07-28 19:45 | Emergency (ER) | payer MEDICAID, OTHER ==
--- NOTE | 2017-07-28 20:08 | PD ---
HPI Chief Complaint: [place] Act/Intoxication Time Seen by Provider: 19:56 Travel History International Travel<30 days: No Contact w/Intl Traveler<30days: No Traveled to known affect area: No History of Present Illness HPI 57-year-old male presents to emergency department with law enforcement under act. The officer states he saw the patient fall and then "flopped around like a fish on the ground." The officer does not think he hit his head or lost consciousness. Patient states he has grand mal seizures and keeps stating he had a seizure yesterday. Officer states that it did not appear to be seizure-like activity. Patient is not in a postictal state at the time of my exam. He is speaking clear and understandable sentences. Patient says he drinks alcohol every day. Says he drinks "hard." When I asked him how much he had to drink today he said "not enough." He denies illicit drug use. Denies chest pain, shortness of breath, abdominal pain, vomiting. He does not have a primary care provider. Allergies to penicillin. Says he has history of seizures and TIAs and he does not take his medications because somebody stole them. He has no other medical complaints. No other modifying factors or associated signs and symptoms. PFSH Past Medical History Hx Anticoagulant Therapy: Yes (ASA 325MG ) Arthritis: Yes Anxiety: Yes Depression: Yes Cancer: No Cardiovascular Problems: Yes High Cholesterol: Yes Cerebrovascular Accident: Yes (TIA 2011) Diabetes: Yes Diminished Hearing: No Gastrointestinal Disorders: No Genitourinary: No Headaches: Yes Hypertension: Yes Insomnia: Yes Musculoskeletal: Yes Neurologic: Yes Parkinson's Disease: Yes Psychiatric: Yes Reproductive: No Respiratory: No Integumentary: Yes Immunizations Current: Yes Seizures: Yes Past Surgical History Other Surgery: Yes (RIGHT SHOULDER) Social History Alcohol Use: Yes (DAILY) Tobacco Use: Yes (2 CIGS/DAY) Substance Use: No Allergies-Medications (Allergen,Severity, Reaction): Coded Allergies: penicillin G (Unverified Allergy, Unknown, 05/14/17) Reported Meds & Prescriptions Reported Meds & Active Scripts Active Keppra (Levetiracetam) 250 Mg Tab 750 Mg PO BID 30 Days Reported Aspirin 81 Mg Chew 81 Mg CHEW DAILY Review of Systems Except as stated in HPI: all other systems reviewed are Neg Physical Exam Narrative GENERAL: Well-nourished, well-developed male patient, in no acute distress; smells of EtOH; disheveled SKIN: Warm and dry. HEAD: Atraumatic. Normocephalic. No facial or scalp abrasions or lacerations noted. EYES: Pupils equal and round. ENT: Mucosa pink and moist. NECK: Supple. Trachea midline. CARDIOVASCULAR: Regular rate and rhythm. No murmur appreciated. RESPIRATORY: No accessory muscle use. Clear to auscultation. Breath sounds equal bilaterally. GASTROINTESTINAL: Abdomen soft, non-tender, nondistended. Hepatic and splenic margins not palpable. Bowel sounds are active 4 quadrants. MUSCULOSKELETAL: No obvious deformities. No clubbing. No cyanosis. No edema. BACK: No obvious deformities. Patient sitting up in bed at 90. NEUROLOGICAL: Awake and alert. Oriented 3. No obvious cranial nerve deficits. Motor grossly within normal limits. Normal speech. Moves all extremities. 5/5 strength to all extremities. PSYCHIATRIC: No delusional thought processes. No hallucinations. Data Data Last Documented VS Vital Signs Date Time Temp Pulse Resp B/P (MAP) Pulse Ox O2 Delivery O2 Flow Rate FiO2 07/28/17 20:33 97 Room Air 07/28/17 20:31 97.4 95 16 123/69 (87) Orders Orders Ct Brain W/O Iv Contrast(Rout) (07/28/17 ) Levetiracetam (Keppra) (07/28/17 20:15) Levetiracetam (Keppra) (07/28/17 20:15) [facility] Medical Decision Making Medical Screen Exam Complete: Yes Emergency Medical Condition: Yes Medical Record Reviewed: Yes Differential Diagnosis Fall, seizure, alcohol intoxication, alcohol abuse Narrative Course 57-year-old male presents to the emergency department under March act. He smells of alcohol. The officer said he did witness the patient fell to the ground he does not think he hit his head or loss consciousness. Patient has history of seizure disorder, but keeps saying that he had a seizure yesterday. The officer says his activity did not appear seizure-like. CT head ordered. 2009: I discussed Patient with Dr. Samayoa and plan of care discussed. Keppra ordered. Keppra prescription provided for discharge. Patient will be given time to sleep and sober up and will be reassessed and most likely discharged at a later time when he is clinically sober. 2038: Report given to Dnoy Johnson PA-C. See his note for final patient disposition. Diagnosis Primary Impression: Alcohol intoxication Qualified Codes: F10.920 - Alcohol use, unspecified with intoxication, uncomplicated Med/Other Pt SpecificInfo: Prescription(s) given Scripts Levetiracetam (Keppra) 250 Mg Tab 750 MG PO BID for seizure for 30 Days, #180 TAB 0 Refills Prov: Ninfa Schmidt 07/28/17 Ninfa Schmidt Jul 28, 2017 20:08
[2017-07-28] MEDS ORDERED: LEVE250 PO (20:11)
[2017-07-28] MEDS ORDERED: levETIRAcetam 500 MG TAB PO ONE ×2 (20:15)
[2017-07-28 20:31] VITALS: BP 123/69; PULSE 95; RESP 16; TEMP 97.4; O2SAT 97
--- NOTE | 2017-07-28 20:58 | RADRPT ---
EXAM DATE: 07/28/2017 8:55 PM EDT AGE/SEX: 57 years / Male INDICATIONS: Altered mental status. CLINICAL DATA: This is the patient's initial encounter. Patient reports that signs and symptoms have been present for 1 day and indicates a pain score of 0/10. MEDICAL/SURGICAL HISTORY: Cerebrovascular disease. Hypertension. None. RADIATION DOSE: 35.65 CTDI (mGy) COMPARISON: [facility] [place], CT BRAIN W/O CONTRAST, 05/15/2017. . TECHNIQUE: CT of the head without contrast. Using automated exposure control and adjustment of the mA and/or kV according to patient size, radiation dose was kept as low as reasonably achievable to ob tain optimal diagnostic quality images. FINDINGS: Cerebrum: Encephalomalacia right temporal parietal region. The ventricles are normal for age. No ev idence of midline shift, mass lesion, hemorrhage or acute infarction. No extraaxial fluid collection s are seen. Posterior Fossa: The cerebellum and brainstem are intact. The 4th ventricle is midline. The cerebe llopontine angle is unremarkable. Extracranial: The visualized portion of the orbits is intact. Partial opacification of the visualize d paranasal sinuses. Skull: The calvaria is intact. No evidence of skull fracture. CONCLUSION: 1. Encephalomalacia right temporal/parietal region, stable. 2. No acute intracranial abnormality. 3. Scattered sinus disease. Electronically signed by: Javad Davey MD 07/28/2017 8:57 PM EDT
--- NOTE | 2017-07-28 21:30 | PD ---
Physical Exam Date Seen by Provider: Jul 28, 2017 Time Seen by Provider: 21:28 Data Data Last Documented VS Vital Signs Date Time Temp Pulse Resp B/P (MAP) Pulse Ox O2 Delivery O2 Flow Rate FiO2 07/28/17 20:33 97 Room Air 07/28/17 20:31 97.4 95 16 123/69 (87) Orders Orders Ct Brain W/O Iv Contrast(Rout) (07/28/17 ) Levetiracetam (Keppra) (07/28/17 20:15) Levetiracetam (Keppra) (07/28/17 20:15) Ed Discharge Order (07/28/17 21:27) [facility] Medical Record Reviewed: Yes Supervised Visit with STANT[place]: No Interpretation(s) Last [address] 07/28/17 0000 Signed Impressions: CONCLUSION: 1. Encephalomalacia right temporal/parietal region, stable. 2. No acute intracranial abnormality. 3. Scattered sinus disease. Differential Diagnosis Differential diagnoses: Alcohol intoxication, substance abuse, electrolyte abnormality, malingering Narrative Course CAT scan of the brain shows no acute intracranial injury. Patient sounds as if he had a alcohol withdrawal seizure. This is a patient well-known to the ER staff due to alcohol intoxication and prior alcohol withdrawal seizures. The patient will sleep it off and will be discharged when he appears clinically sober. Diagnosis Primary Impression: Alcohol intoxication Qualified Codes: F10.920 - Alcohol use, unspecified with intoxication, uncomplicated Additional Impression: Alcohol withdrawal seizure Qualified Codes: F10.230 - Alcohol dependence with withdrawal, uncomplicated Patient Instructions: General Instructions Additional Instruction: Rest. Increase fluids. Avoid alcohol. Avoid illegal substances. Follow-up with [facility] for detox. Do not operate a car or any heavy machinery under the influence of alcohol or drugs. Follow-up with a medical doctor this week. Return to the ER for emergencies Med/Other Pt SpecificInfo: Prescription(s) given Scripts Levetiracetam (Keppra) 250 Mg Tab 750 MG PO BID for seizure for 30 Days, #180 TAB 0 Refills Prov: Ninfa Schmidt Mello TIDWELL 07/28/17 Disposition: 01 DISCHARGE HOME Condition: Stable Dony Johnson Jul 28, 2017 21:30
== END 2017-07-29 06:21 | disposition home or self-care (01) ==
LOC: NEPD 19:45
DX: F10.920 Alcohol use, unspecified with intoxication, uncomplicated (principal); F10.230 Alcohol dependence with withdrawal, uncomplicated; E11.9 Type 2 diabetes mellitus without complications; I10 Essential (primary) hypertension; G40.909 Epilepsy, unspecified, not intractable, without status epilepticus; G20 Parkinson's disease; Z72.0 Tobacco use; Z79.82 Long term (current) use of aspirin; Z86.59 Personal history of other mental and behavioral disorders; Z86.79 Personal history of other diseases of the circulatory system; Z87.39 Personal history of other diseases of the musculoskeletal system and connective tissue; Z86.69 Personal history of other diseases of the nervous system and sense organs
CPT/HCPCS: 70450; 99283